=== PATIENT | female | born 1950 | race Caucasian/White ===

== ENCOUNTER → 2016-11-12 | Outpatient (CLI) | payer OTHER ==
--- NOTE | 2016-11-12 13:25 | CT ---
EXAMINATION TYPE: CT brain w con DATE OF EXAM: 11/12/2016 1:08 PM COMPARISON: NONE HISTORY: 66-year-old female passing out, blacking out or possible seizure CT DLP: 1049 mGycm Automated exposure control for dose reduction was used. TECHNIQUE: CT scan of the head is performed with IV Contrast, patient injected with 100 ml mL of Omn ipaque 300. Coronal/sagittal reconstructions performed. FINDINGS: There is a partially calcified and enhancing extra-axial lesion along the superior right frontal conv exity measuring 1 cm. No significant mass effect. No midline shift identified. The ventricles and maldonado lci are within normal limits in size. The globes are intact and the visualized sinuses are clear. IMPRESSION: Partially calcified, enhancing 1 cm extra-axial lesion along the superior right frontal convexity. Fi ndings suggestive of a meningioma. There is no mass effect or other abnormal enhancing lesion seen.
--- NOTE | 2016-11-12 13:35 | CT ---
EXAMINATION TYPE: CT abdomen pelvis w con DATE OF EXAM: 11/12/2016 1:07 PM COMPARISON: NONE HISTORY: 66-year-old female LLQ pain, vomiting, passing out TECHNIQUE: Contiguous axial scanning of the abdomen and pelvis following administration of 100 ml Omn ipaque 300 IV contrast. Delayed images through the kidneys and coronal/sagittal reconstructions perf ormed. CT DLP: 1341 mGycm Automated exposure control for dose reduction was used. FINDINGS: Heart is normal size without pericardial effusion. Lung bases clear without pleural effusion. No focal liver lesion or biliary ductal dilatation. Portal venous system is patent. Gallbladder, adrenal glands, right kidney, spleen, and pancreas appear within normal limits. A couple subcentimeter hypodensities medial upper pole right kidney are too small for accurate CT yobany racterization and probably represent cysts. Moderate atherosclerotic calcifications throughout the abdominal aorta and iliac arteries. There is n arrowing of the patent lumen of the distal abdominal aorta to approximately 4.5 mm. No dilated small bowel, free fluid, or free air. Scattered nonenlarged mesenteric lymph nodes. No abd ominal lymphadenopathy by CT size criteria. While the appendix is not visualized, there are no secondary signs of acute appendicitis. There is some submucosal fat deposition within the right hemicolon. Mild to moderate overall stool bu rden. There is also mild circumferential wall thickening of the proximal sigmoid colon with mid sigmo id diverticulosis. No surrounding pericolonic fat stranding. Bladder is partially urine distended. Uterus surgically absent. No adnexal mass identified. No abnorm al fluid collection in the pelvis or pelvic lymphadenopathy seen. Bones: No osseous destructive process. Degenerative disc disease thoracolumbar junction and L1-L2. IMPRESSION: 1. MILD CIRCUMFERENTIAL WALL THICKENING OF THE PROXIMAL SIGMOID COLON COULD RELATE TO UNDERDISTENTION OR MILD NONSPECIFIC COLITIS. 2. MID SIGMOID DIVERTICULOSIS WITHOUT ANY CONVINCING EVIDENCE FOR ACUTE DIVERTICULITIS. 3. MODERATE PROSTATIC CALCIFICATIONS THROUGHOUT THE ABDOMINAL AORTA AND ILIAC ARTERIES. PLAQUE AND CA LCIFICATION AT THE DISTAL ABDOMINAL AORTA NARROWS THE PATENT LUMEN TO 4.5 MM. 4. SUBMUCOSAL FAT DEPOSITION WITHIN THE RIGHT HEMICOLON CAN BE SEEN AFTER RECURRENT BOUTS OF PRIOR IN FLAMMATION OR COULD RELATE TO OBESITY.
== END | disposition home or self-care (01) ==
LOC: RADCTMAIN 11:00
PROVIDERS: ATTEND Family Medicine
DX: K57.30 Diverticulosis of large intestine without perforation or abscess without bleeding (principal); K63.89 Other specified diseases of intestine; I70.0 Atherosclerosis of aorta; R10.84 Generalized abdominal pain; R90.89 Other abnormal findings on diagnostic imaging of central nervous system
CPT/HCPCS: 70460; 74177; Q9967

== ENCOUNTER → 2016-11-25 | Outpatient (CLI) | payer OTHER ==
[2016-11-25 15:13] LABS: Non-African American GFR(MDRD) >60 (>60 ml/min/1.73 sqM)
== END | disposition home or self-care (01) ==
LOC: LABWHC1 14:35
PROVIDERS: ATTEND Family Medicine
DX: N18.9 Chronic kidney disease, unspecified (principal)
CPT/HCPCS: 36415; 82565

== ENCOUNTER → 2016-11-26 | Outpatient (CLI) | payer OTHER ==
--- NOTE | 2016-11-26 07:43 | MR ---
EXAMINATION TYPE: MR cervical spine wo/w con DATE OF EXAM: 11/26/2016 6:44 AM COMPARISON: 12/29/2011 HISTORY: Neck pain TECHNIQUE: Multiplanar, multisequence images of the cervical spine were acquired utilizing 13 mL intravenous Mul tiHance gadolinium contrast. Diffusion weighted imaging was performed. C2-C3: No evidence for degenerative disc disease. No disc bulge/herniation or protrusion. No Canal stenosis. Foramina are patent bilaterally. C3-C4: Mild disc bulge is present. A slightly greater to the left paracentral region. No AP spinal ca nal stenosis present. Cord contact is not identified. There is mild narrowing of the neural foramen. C4-C5: Central disc bulging has moderate anterior thecal sac compression. Cord contact is evident. Mi ld cord deformity is present. Bilateral foraminal stenosis is present. Canal narrowing is present. C5-C6: Broad-based disc bulge is moderate anterior thecal sac compression. Cord contact is present. C ord compression is present. No signal abnormality within the cord is evident. AP spinal canal diamete r is 0.6 cm. Severe bilateral foraminal narrowing from uncovertebral joint atrophy is present. C6-C7: Mild disc bulges and contact. No AP spinal canal stenosis is present. Moderate left and mild r ight foraminal narrowing is present. C7-T1: No evidence for degenerative disc disease. No disc bulge/herniation or protrusion. No Canal stenosis. Foramina are patent bilaterally. Disc space narrowing is present C4-5 C5-6. Vertebral body heights are preserved. Alignment is normal. Spinal cord maintains normal signal through its visualized course. Some subtle subtle increased sign al posterior to the C5 level on the sagittal T2-weighted images may be truncation artifact not identi fied on the axial images. IMPRESSION: 1. Spinal canal stenosis due to broad-based disc bulging C5-C6. This is stable from 2011. 2. Disc bulging C4-5 with cord contact and mild cord impression. Mild spinal canal stenosis is presen t. This is stable from 2011. 3. Foraminal narrowing especially noted C5-6 bilaterally, C4-5, and to a mild degree bilaterally at C 3-4.
== END | disposition home or self-care (01) ==
LOC: RADMRIMAIN 06:03
PROVIDERS: ATTEND Family Medicine
DX: M48.02 Spinal stenosis, cervical region (principal); M99.71 Connective tissue and disc stenosis of intervertebral foramina of cervical region; M50.221 Other cervical disc displacement at C4-C5 level
CPT/HCPCS: 72156; A9577

== ENCOUNTER → 2017-02-05 | Outpatient (CLI) | payer OTHER ==
[2017-02-05 07:50] LABS: Non-African American GFR(MDRD) >60 (>60 ml/min/1.73 sqM)
--- NOTE | 2017-02-05 09:18 | MR ---
EXAMINATION TYPE: MR brain wo/w con DATE OF EXAM: 02/05/2017 8:58 AM COMPARISON: NONE HISTORY: 66-year-old female with frequent headaches, dizziness, abnormal CT 11-12-16. TECHNIQUE: Multiplanar, multisequence images of the brain and brainstem were acquired before and aft er administration of 13 mL IV MultiHance. Diffusion weighted imaging is performed. FINDINGS: No evidence for acute infarction, hemorrhage, mass effect, midline shift, herniation, effacement of b kyra cisterns, or extra-axial fluid collection. Redemonstrated is the 1 cm enhancing extra-axial mass along the right superior frontal convexity in t he paramedian region. This shows T2 intermediate signal. Post contrast images demonstrate no evidence of other pathologic enhancement. Dural venous sinuses a re patent. The ventricles and sulci are age-appropriate. Major intracranial flow voids are intact. T2/FLAIR weighted sequences show no abnormal white matter signal changes. Incidental partially empty sella. Otherwise, the midline structures demonstrate normal morphology. T he craniocervical junction is normal. Mild mucosal thickening ethmoid air cells and frontal sinuses. Globes are intact. IMPRESSION: 1. As seen on CT, there is a 1 cm enhancing extra-axial mass along the superior right frontal convexi ty. This is most suggestive of a meningioma. A 6 - 12 month follow up exam can be considered. There i s no associated mass effect. 2. Partially empty sella. The exam is otherwise unremarkable.
== END | disposition home or self-care (01) ==
LOC: RADMRIMAIN 07:31
PROVIDERS: ATTEND Family Medicine
DX: G93.89 Other specified disorders of brain (principal); E23.6 Other disorders of pituitary gland
CPT/HCPCS: 82565; 70553; A9577

== ENCOUNTER 2017-09-20 23:56 | Emergency (ER) | payer MEDICARE, OTHER ==
[2017-09-21] MEDS ORDERED: ASPIRIN 81 MG PO STA (00:28)
--- NOTE | 2017-09-21 00:31 | ED ---
Chest Pain HPI - General Chief Complaint: Chest Pain Stated Complaint: Chest Pain Time Seen by Provider: 09/21/17 00:04 Source: patient Mode of arrival: ambulatory Limitations: no limitations - History of Present Illness Initial Comments: This patient is a 67-year-old woman who presents to be a value for substernal chest pain. The patient states that probably an hour ago she was awakened from sleep by pain that she described as sharp and severe. She states that after that it felt like heaviness on her chest. She also noted that she was having some nausea and then threw up and she also had episode of diarrhea. Patient denied anginal symptoms, including no diaphoresis, dyspnea, palpitations, lightheadedness or syncope. The patient states that she called her daughter to discuss the pains and they decided to be evaluated here. She has had this in the past and reportedly seen with no diagnosis. MD Complaint: chest pain Onset/Timin -: hour(s) Onset: during rest, awoke with symptoms Pain Location: substernal Pain Radiation: none Severity: severe Quality: heaviness, sharp Consistency: constant, other Improves With: nothing Worsens With: nothing Anginal Symptoms: nausea, vomiting Treatments Prior to Arrival: none - Related Data Previous Rx's Medication Instructions Recorded Omeprazole 20 mg PO DAILY 10 Days cap 07/22/16 Ondansetron Odt [Zofran ODT] 4 mg PO Q8HR PRN #15 tab 07/22/16 Allergies Allergy/AdvReac Type Severity Reaction Status Date / Time codeine Allergy Unknown Verified 07/22/16 08:36 iron Allergy Unknown Verified 07/22/16 08:36 Penicillins AdvReac Rash/Hives Verified 09/21/17 00:10 Review of Systems ROS Statement: Those systems with pertinent positive or pertinent negative responses have been documented in the HPI. ROS Other: All systems not noted in ROS Statement are negative. Constitutional: Denies: fever, chills Respiratory: Denies: cough, dyspnea, wheezes Cardiovascular: Reports: chest pain. Denies: palpitations, orthopnea, edema, syncope Gastrointestinal: Reports: nausea, vomiting, diarrhea. Denies: abdominal pain, hematemesis, melena, hematochezia Genitourinary: Denies: dysuria, hematuria Musculoskeletal: Denies: back pain Skin: Denies: rash Neurological: Denies: headache, weakness, numbness EKG Findings - EKG Results: EKG: interpreted by VONDA PETTY, sinus rhythm (Rate proximally 68 bpm), normal axis, normal QRS, normal ST/T, no acute changes - AK, Pacemaker, Normal: Normal tracing: normal tracing Past Medical History Past Medical History: No Reported History Additional Past Medical History / Comment(s): Pt states she sometimes has seizure like activity but was never diagnosed. History of Any Multi-Drug Resistant Organisms: None Reported Past Surgical History: Hysterectomy Past Psychological History: No Psychological Hx Reported Smoking Status: Current every day smoker Past Alcohol Use History: None Reported Past Drug Use History: None Reported General Exam Limitations: no limitations General appearance: alert, in no apparent distress Head exam: Present: atraumatic, normocephalic Eye exam: Present: normal appearance ENT exam: Present: normal oropharynx Respiratory exam: Present: normal lung sounds bilaterally. Absent: respiratory distress, wheezes, rales, rhonchi, stridor, chest wall tenderness Cardiovascular Exam: Present: regular rate, normal rhythm, normal heart sounds. Absent: systolic murmur, diastolic murmur, rubs, gallop GI/Abdominal exam: Present: soft. Absent: distended, tenderness, guarding, rebound, mass Extremities exam: Present: normal inspection, normal capillary refill. Absent: pedal edema, calf tenderness Back exam: Present: normal inspection. Absent: CVA tenderness (R), CVA tenderness (L), vertebral tenderness Neurological exam: Present: alert Skin exam: Present: warm, dry, intact, normal color. Absent: rash Course Vital Signs 09/21/17 00:01 Temperature 97.2 F L Pulse Rate 68 Respiratory 18 Rate Blood Pressure 129/59 O2 Sat by Pulse 98 Oximetry - Reevaluation(s) Reevaluation #1: 09/21/17 00:31 Patient declined analgesic Chest Pain MDM - MDM And is a 67-year-old woman presenting for evaluation of chest pain. Her initial workup is negative. I did discuss monitoring her and checking her heart enzymes again, but the patient states that all of her symptoms have resolved and she wants to go home. She is declining admission, but she does agree to return should any of the symptoms recur. She also does agree to have close follow-up with cardiology to have a stress test. Again we discussed return parameters and she will return should any symptoms recur if any new symptoms start. She does understand small risk of missing cardiac disease after leaving with one set of heart enzymes. Disposition Clinical Impression: Chest pain Disposition: HOME SELF-CARE Condition: Good Instructions: Chest Pain (ED) Referrals: Jovon Soler MD [Primary Care Provider] - 1-2 days Amador Crow MD [STAFF PHYSICIAN] - 1-2 days
[2017-09-21 00:39] LABS: Basophils # (A) 0.1 k/uL (0-0.2); Basophils % (A) 1 %; CH 28.2; Eosinophils # (A) 0.2 k/uL (0-0.7); Eosinophils % (A) 2 %; HDW 2.29; HGB 14.2 gm/dL (11.4-16.0); Luc # (Auto) 0.17; Luc % (Auto) 2; Lymphocytes % (A) 46 %; MCH 27.8 pg (25.0-35.0); MCHC 32.4 g/dL (31.0-37.0); MCV 85.7 fL (80.0-100.0); Mean Platelet Volume 7.1; Monocytes # (A) 0.7 k/uL (0-1.0); Monocytes % (A) 8 %; Neutrophils # (A) 3.6 k/uL (1.3-7.7); Neutrophils % (A) 41 %; RBC 5.13 m/uL (3.80-5.40); RDW 13.7 % (11.5-15.5); WBC 8.7 k/uL (3.8-10.6); WBC (Perox) 8.35
--- NOTE | 2017-09-21 00:44 | XR ---
EXAMINATION TYPE: XR chest 1V portable DATE OF EXAM: 09/21/2017 COMPARISON: NONE HISTORY: Chest pain TECHNIQUE: Single frontal view of the chest is obtained. FINDINGS: Heart and mediastinum are normal. Lungs are clear. Diaphragm is normal. Bony thorax is int act. There are chest leads. IMPRESSION: Normal chest
[2017-09-21 00:55] LABS: INR 0.9 (<1.2); Prothrombin Time 9.7 sec (9.0-12.0)
[2017-09-21 00:56] LABS: ALT 28 U/L (9-52); AST 19 U/L (14-36); Alkaline Phosphatase 66 U/L (38-126); Amylase 64 U/L (30-110); Anion Gap 10 mmol/L; Blood Urea Nitrogen 14 mg/dL (7-17); Calcium 9.9 mg/dL (8.4-10.2); Carbon Dioxide 21 mmol/L (22-30); Chloride 109 mmol/L (98-107); Glucose 124 mg/dL (74-99); Non-African American GFR(MDRD) >60 (>60 ml/min/1.73 sqM); Potassium 4.2 mmol/L (3.5-5.1); Sodium 140 mmol/L (137-145); Total Bilirubin 0.5 mg/dL (0.2-1.3); Total Protein 6.9 g/dL (6.3-8.2)
[2017-09-21 01:06] LABS: Creatine Kinase 122 U/L (30-135)
[2017-09-21 01:17] LABS: Creatine Kinase MB 1.2 ng/mL (0.0-2.4); Troponin I <0.012 ng/mL (0.000-0.034)
[2017-09-21 01:52] VITALS: BP 135/70; PULSE 72; RESP 16; TEMP 97.9
== END 2017-09-21 01:52 | disposition home or self-care (01) ==
LOC: EC 23:56
DX: R07.2 Precordial pain (principal); R11.2 Nausea with vomiting, unspecified; R19.7 Diarrhea, unspecified; F17.200 Nicotine dependence, unspecified, uncomplicated; Z88.0 Allergy status to penicillin; Z88.5 Allergy status to narcotic agent; Z91.048 Other nonmedicinal substance allergy status; Z53.20 Procedure and treatment not carried out because of patient's decision for unspecified reasons
CPT/HCPCS: 36415; 71010; 80053; 82150; 82550; 82553; 83690; 83735; 84484; 85025; 85379; 85610; 85730; 99285

== ENCOUNTER 2018-12-30 16:21 | Emergency (ER) | payer MEDICARE, OTHER ==
[2018-12-30] MEDS ORDERED: PANTOPRAZOLE 40 MG/10 ML VIAL IVP STA (17:19)
[2018-12-30] MEDS ORDERED: MORPHINE SULFATE 4 MG/ML SYRINGE IV STA (17:19)
[2018-12-30] MEDS ORDERED: SODIUM CHLORIDE 0.9% 1,000 ML IV STA (17:19)
[2018-12-30] MEDS ORDERED: ONDANSETRON 4 MG/2 ML VIAL IVP STA (17:19)
--- NOTE | 2018-12-30 17:19 | ED ---
General Adult HPI - General Chief complaint: Back Pain/Injury Stated complaint: BACK PAIN AND VOMITING Time Seen by Provider: 12/30/18 16:51 Source: patient, RN notes reviewed Mode of arrival: wheelchair Limitations: no limitations - History of Present Illness Initial comments: Patient is a pleasant 68-year-old female presenting to the emergency department with multiple complaints. Symptoms have been occurring for several days. Patient does have lower back discomfort that radiates towards the left leg. Patient has some associated paresthesias. No abdominal pain. Patient does complain of nausea and vomiting and diarrhea, that started several days ago. This seemed to improve and then nausea returned today. Patient has had one or 2 episodes of diarrhea today. Patient was sweaty this morning and chilled and question if she could've had a fever. No weakness. Patient denies chest pain. - Related Data Previous Rx's Medication Instructions Recorded Omeprazole 20 mg PO DAILY 10 Days cap 07/22/16 Ondansetron Odt [Zofran ODT] 4 mg PO Q8HR PRN #15 tab 07/22/16 Allergies Allergy/AdvReac Type Severity Reaction Status Date / Time codeine Allergy Unknown Verified 12/30/18 16:34 iron Allergy Unknown Verified 12/30/18 16:34 Penicillins AdvReac Rash/Hives Verified 12/30/18 16:34 Review of Systems ROS Statement: Those systems with pertinent positive or pertinent negative responses have been documented in the HPI. ROS Other: All systems not noted in ROS Statement are negative. Constitutional: Reports: chills Eyes: Denies: eye pain ENT: Denies: ear pain Respiratory: Denies: cough Cardiovascular: Denies: chest pain Endocrine: Reports: fatigue Gastrointestinal: Reports: nausea, vomiting, diarrhea. Denies: abdominal pain Genitourinary: Denies: dysuria Musculoskeletal: Reports: as per HPI, back pain Skin: Denies: rash Neurological: Reports: headache. Denies: weakness Past Medical History Past Medical History: No Reported History Additional Past Medical History / Comment(s): Pt states she sometimes has seizure like activity but was never diagnosed. History of Any Multi-Drug Resistant Organisms: None Reported Past Surgical History: Back Surgery, Hysterectomy Past Psychological History: No Psychological Hx Reported Smoking Status: Current every day smoker Past Alcohol Use History: None Reported Past Drug Use History: None Reported General Exam Limitations: no limitations General appearance: alert, in no apparent distress Head exam: Present: atraumatic Eye exam: Present: normal appearance, PERRL ENT exam: Present: normal oropharynx Neck exam: Present: normal inspection Respiratory exam: Present: normal lung sounds bilaterally Cardiovascular Exam: Present: regular rate, normal rhythm Expanded Peripheral pulses: 1+: Posterior Tibialis (R), Posterior Tibialis (L), Dorsalis Pedis (R), Dorsalis Pedis (L), 2+: Radial (R), Radial (L) GI/Abdominal exam: Present: soft, normal bowel sounds. Absent: distended, tenderness, guarding, rebound, rigid, pulsatile mass Extremities exam: Present: normal inspection, full ROM, normal capillary refill , other (cap Refill less than 2 seconds). Absent: tenderness Back exam: Present: tenderness (Mild tenderness mid lumbar and sacral region) Neurological exam: Present: alert, oriented X3, CN II-XII intact. Absent: motor sensory deficit Psychiatric exam: Present: normal affect, normal mood Skin exam: Present: normal color Course Vital Signs 12/30/18 12/30/18 12/30/18 16:34 18:13 19:48 Temperature 97.7 F Pulse Rate 78 61 70 Respiratory 18 16 16 Rate Blood Pressure 164/74 102/64 92/48 O2 Sat by Pulse 98 96 95 Oximetry 12/30/18 20:13 Temperature Pulse Rate 67 Respiratory 16 Rate Blood Pressure 95/65 O2 Sat by Pulse 95 Oximetry - Reevaluation(s) Reevaluation #1: 12/30/18 19:21 Patient reevaluated and states she was starting to feel better however is feeling worse. Abdomen with mild to moderate tenderness left lower abdomen. 12/30/18 20:24 Patient again reevaluated and significantly improved. Of note patient does have positive straight leg raise on the left only. Patient has symptoms consistent with typical back pain. Computed tomography scan is abnormal and patient is updated regarding this. Case was discussed in detail with Dr. Kumar who is agreeable that patient can be discharged and will follow up with patient at 10 AM on Tuesday. Patient updated. Patient does have pedal pulses present however slightly diminished. There is no color change. There is good cap refill. Patient is advised aspirin daily until follow-up. EKG Findings - EKG Comments: EKG Findings:: Normal sinus rhythm at 67. MT 124. QRS 80. QT 400. QTc 422. Left axis. Normal QRS. No acute ST change. Medical Decision Making - Lab Data Result diagrams: 12/30/18 17:39 12/30/18 17:39 Lab Results 12/30/18 12/30/18 12/30/18 Range/Units 17:39 17:39 17:39 WBC 7.5 (3.8-10.6) k/uL RBC 4.78 (3.80-5.40) m/uL Hgb 13.6 (11.4-16.0) gm/dL Hct 40.5 (34.0-46.0) % MCV 84.8 (80.0-100.0) fL MCH 28.5 (25.0-35.0) pg MCHC 33.6 (31.0-37.0) g/dL RDW 12.3 (11.5-15.5) % Plt Count 379 (150-450) k/uL Neutrophils % 43 % Lymphocytes % 44 % Monocytes % 8 % Eosinophils % 3 % Basophils % 0 % Neutrophils # 3.2 (1.3-7.7) k/uL Lymphocytes # 3.3 (1.0-4.8) k/uL Monocytes # 0.6 (0-1.0) k/uL Eosinophils # 0.2 (0-0.7) k/uL Basophils # 0.0 (0-0.2) k/uL PT (9.0-12.0) sec INR (<1.2) APTT (22.0-30.0) sec Sodium 139 (137-145) mmol/L Potassium 4.2 (3.5-5.1) mmol/L Chloride 106 (98-107) mmol/L Carbon Dioxide 26 (22-30) mmol/L Anion Gap 7 mmol/L BUN 12 (7-17) mg/dL Creatinine 0.70 (0.52-1.04) mg/dL Est GFR (CKD-EPI)AfAm >90 (>60 ml/min/1.73 sqM) Est GFR (CKD-EPI)NonAf >90 (>60 ml/min/1.73 sqM) Glucose 106 H (74-99) mg/dL Calcium 9.5 (8.4-10.2) mg/dL Total Bilirubin 0.4 (0.2-1.3) mg/dL AST 15 (14-36) U/L ALT 25 (9-52) U/L Alkaline Phosphatase 62 (38-126) U/L Creatine Kinase 96 (30-135) U/L CK-MB (CK-2) 0.9 (0.0-2.4) ng/mL Troponin I <0.012 (0.000-0.034) ng/mL Total Protein 6.5 (6.3-8.2) g/dL Albumin 3.9 (3.5-5.0) g/dL Amylase 50 (30-110) U/L Lipase 83 (23-300) U/L Urine Color Urine Appearance (Clear) Urine pH (5.0-8.0) Ur Specific [place] (1.001-1.035) Urine Protein (Negative) Urine Glucose (UA) (Negative) Urine Ketones (Negative) Urine Blood (Negative) Urine Nitrite (Negative) Urine Bilirubin (Negative) Urine Urobilinogen (<2.0) mg/dL Ur Leukocyte Esterase (Negative) Urine RBC (0-5) /hpf Urine WBC (0-5) /hpf Ur Squamous Epith Cells (0-4) /hpf Urine Mucus (None) /hpf 12/30/18 12/30/18 Range/Units 17:39 18:54 WBC (3.8-10.6) k/uL RBC (3.80-5.40) m/uL Hgb (11.4-16.0) gm/dL Hct (34.0-46.0) % MCV (80.0-100.0) fL MCH (25.0-35.0) pg MCHC (31.0-37.0) g/dL RDW (11.5-15.5) % Plt Count (150-450) k/uL Neutrophils % % Lymphocytes % % Monocytes % % Eosinophils % % Basophils % % Neutrophils # (1.3-7.7) k/uL Lymphocytes # (1.0-4.8) k/uL Monocytes # (0-1.0) k/uL Eosinophils # (0-0.7) k/uL Basophils # (0-0.2) k/uL PT 9.4 (9.0-12.0) sec INR 0.8 (<1.2) APTT 22.2 (22.0-30.0) sec Sodium (137-145) mmol/L Potassium (3.5-5.1) mmol/L Chloride (98-107) mmol/L Carbon Dioxide (22-30) mmol/L Anion Gap mmol/L BUN (7-17) mg/dL Creatinine (0.52-1.04) mg/dL Est GFR (CKD-EPI)AfAm (>60 ml/min/1.73 sqM) Est GFR (CKD-EPI)NonAf (>60 ml/min/1.73 sqM) Glucose (74-99) mg/dL Calcium (8.4-10.2) mg/dL Total Bilirubin (0.2-1.3) mg/dL AST (14-36) U/L ALT (9-52) U/L Alkaline Phosphatase (38-126) U/L Creatine Kinase (30-135) U/L CK-MB (CK-2) (0.0-2.4) ng/mL Troponin I (0.000-0.034) ng/mL Total Protein (6.3-8.2) g/dL Albumin (3.5-5.0) g/dL Amylase (30-110) U/L Lipase (23-300) U/L Urine Color Yellow Urine Appearance Clear (Clear) Urine pH 6.5 (5.0-8.0) Ur Specific [place] 1.009 (1.001-1.035) Urine Protein Negative (Negative) Urine Glucose (UA) Negative (Negative) Urine Ketones Negative (Negative) Urine Blood Trace H (Negative) Urine Nitrite Negative (Negative) Urine Bilirubin Negative (Negative) Urine Urobilinogen <2.0 (<2.0) mg/dL Ur Leukocyte Esterase Negative (Negative) Urine RBC 2 (0-5) /hpf Urine WBC 2 (0-5) /hpf Ur Squamous Epith Cells 1 (0-4) /hpf Urine Mucus Rare H (None) /hpf - Radiology Data Radiology results: image reviewed (Chest and abdominal x-rays show no acute process. Computed tomography scan of the abdomen and pelvis does show thrombus of the distal aorta into the iliac.) Disposition Clinical Impression: Low back pain, Aortic thrombus Disposition: HOME SELF-CARE Condition: Stable Instructions (If sedation given, give patient instructions): Acute Low Back Pain (ED) Additional Instructions: Aspirin daily. Please follow-up with Dr. Kumar Tuesday morning at 10 AM. Return for increased pain, fevers, weakness, worsening or changing symptoms or other concerns. Is patient prescribed a controlled substance at d/c from ED?: No Referrals: Srinivasa Kumar MD [STAFF PHYSICIAN] - 1-2 days Alda Beatty MD [STAFF PHYSICIAN] - 1-2 days Renetta Almeida MD [STAFF PHYSICIAN] - 1-2 days Time of Disposition: 20:27
--- NOTE | 2018-12-30 18:07 | XR ---
EXAMINATION TYPE: XR KUB DATE OF EXAM: 12/30/2018 COMPARISON: NONE HISTORY: Back pain and vomiting TECHNIQUE: 2 views supine FINDINGS: There is no sign of intestinal obstruction or pneumoperitoneum. Fecal pattern is normal. Th ere are no pathologic calcifications over the kidneys. Lung bases are clear. IMPRESSION: Nonacute abdomen.
--- NOTE | 2018-12-30 18:07 | XR ---
EXAMINATION TYPE: XR chest 2V DATE OF EXAM: 12/30/2018 COMPARISON: 09/21/2017 HISTORY: Chest pain TECHNIQUE: Frontal and lateral views of the chest are obtained. FINDINGS: Heart and mediastinum are normal. Lungs are clear. Diaphragm is normal. There are chest le ads. Bony thorax is intact. IMPRESSION: Normal chest. No change.
[2018-12-30 18:15] VITALS: RESP 16
[2018-12-30 18:19] LABS: Basophils % (A) 0 %; Eosinophils # (A) 0.2 k/uL (0-0.7); Eosinophils % (A) 3 %; HCT 40.5 % (34.0-46.0); HGB 13.6 gm/dL (11.4-16.0); Lymphocytes # (A) 3.3 k/uL (1.0-4.8); Lymphocytes % (A) 44 %; MCH 28.5 pg (25.0-35.0); MCHC 33.6 g/dL (31.0-37.0); MCV 84.8 fL (80.0-100.0); Monocytes # (A) 0.6 k/uL (0-1.0); Monocytes % (A) 8 %; Neutrophils # (A) 3.2 k/uL (1.3-7.7); Neutrophils % (A) 43 %; Platelet Count 379 k/uL (150-450); RBC 4.78 m/uL (3.80-5.40); RDW 12.3 % (11.5-15.5); WBC 7.5 k/uL (3.8-10.6)
[2018-12-30 18:40] LABS: INR 0.8 (<1.2); Partial Thromboplastin Time 22.2 sec (22.0-30.0); Prothrombin Time 9.4 sec (9.0-12.0)
[2018-12-30 18:41] LABS: ALT 25 U/L (9-52); AST 15 U/L (14-36); Albumin 3.9 g/dL (3.5-5.0); Alkaline Phosphatase 62 U/L (38-126); Amylase 50 U/L (30-110); Anion Gap 7 mmol/L; Blood Urea Nitrogen 12 mg/dL (7-17); Calcium 9.5 mg/dL (8.4-10.2); Carbon Dioxide 26 mmol/L (22-30); Chloride 106 mmol/L (98-107); Creatine Kinase 96 U/L (30-135); Glucose 106 mg/dL (74-99); Lipase 83 U/L (23-300); Potassium 4.2 mmol/L (3.5-5.1); Sodium 139 mmol/L (137-145); Total Bilirubin 0.4 mg/dL (0.2-1.3); Total Protein 6.5 g/dL (6.3-8.2)
[2018-12-30 18:51] LABS: Creatine Kinase MB 0.9 ng/mL (0.0-2.4); Troponin I <0.012 ng/mL (0.000-0.034)
[2018-12-30 19:10] LABS: Appearance,Urine Clear (Clear); Bilirubin,Urine Negative (Negative); Blood,Urine Trace (Negative); Color,Urine Yellow; Glucose,Urine (UA) Negative (Negative); Ketones,Urine Negative (Negative); Leukocyte Esterase,Urine Negative (Negative); Mucus,Urine Rare /hpf; Nitrite,Urine Negative (Negative); PH, Urine 6.5 (5.0-8.0); Protein,Urine Negative (Negative); RBC,Urine 2 /hpf (0-5); Specific Gravity,Urine 1.009 (1.001-1.035); Squamous Epithelial Cell,Urine 1 /hpf (0-4); Urobilinogen,Urine <2.0 mg/dL (<2.0); WBC,Urine 2 /hpf (0-5)
[2018-12-30] MEDS ORDERED: HYDROcodone/APAP 5-325MG 1 EACH TAB PO STA (19:17)
[2018-12-30] MEDS ORDERED: HYDROmorphone 1 MG/ML 1 ML SYRINGE IVP STA (19:20)
--- NOTE | 2018-12-30 20:04 | CT ---
EXAMINATION TYPE: CT abdomen pelvis w con DATE OF EXAM: 12/30/2018 COMPARISON: 11/12/2016 HISTORY: BILATERAL LEG NUMBNESS, BACK PAIN, N&V CT DLP: 603.4 mGycm Automated exposure control for dose reduction was used. TECHNIQUE: Helical acquisition of images was performed from the lung bases through the pelvis. CONTRAST: Performed without Oral Contrast and with IV Contrast, patient injected with 100 mL of Isovue 300. FINDINGS: There is mild subsegmental atelectasis at the lung bases. There is no pleural effusion. Heart size is normal. There is no pericardial effusion. Liver and gallbladder appear normal. Bile ducts are not dilated. There is no evidence of a splenic ma ss. There is no pancreatic mass. There is no adrenal mass. Kidneys show satisfactory contrast opacification. There is no hydronephrosi s. Abdominal aorta is atheromatous. There is no retroperitoneal adenopathy. There are small renal cor tical cysts that measure up to 1 cm. There is significant apparent thrombus in the abdominal aorta. There is decreased contrast opacificat ion of the iliac arteries in the lower abdominal aorta. Bladder distends smoothly. There is no eviden ce of a pelvic mass. There is no free fluid in the pelvis. There are multiple diverticula of the sigm oid colon. There is no sign of diverticulitis. Appendix is not definitely seen. There is no sign of a ppendicitis. There is no mesenteric edema. The lumbar spine is intact. I see no bony destructive proc ess. IMPRESSION: THERE IS THROMBOSIS OF THE LOWER ABDOMINAL AORTA AND THE PROXIMAL ILIAC ARTERIES. THIS IS A CHANGE CO MPARED TO LAST EXAM. THERE IS PROBABLY COLLATERAL VESSELS RECONSTITUTING THE FEMORAL ARTERIES. MILD SUBSEGMENTAL ATELECTASIS AT THE LUNG BASES. MILD SIGMOID DIVERTICULOSIS. NO EVIDENCE OF DIVERTIC ULITIS.
[2018-12-30] MEDS ORDERED: ASPIRIN 81 MG PO STA (20:28)
[2018-12-30 20:35] VITALS: BP 91/54; PULSE 61; TEMP 98.8
== END 2018-12-30 20:36 | disposition home or self-care (01) ==
LOC: EC 16:21
DX: I74.09 Other arterial embolism and thrombosis of abdominal aorta (principal); F17.200 Nicotine dependence, unspecified, uncomplicated; Z98.890 Other specified postprocedural states; Z90.710 Acquired absence of both cervix and uterus; Z88.5 Allergy status to narcotic agent; Z88.0 Allergy status to penicillin; Z91.048 Other nonmedicinal substance allergy status
CPT/HCPCS: 36415; 93005; 80053; 82150; 82550; 82553; 83690; 84484; 85025; 85610; 85730; 81001; 71046; 74018; 74177; 99284; 96374; 96375 ×3; 96361 ×2; J2270; J2405; J1170; C9113; Q9967

== ENCOUNTER → 2019-09-24 | Outpatient (CLI) | payer MEDICARE, OTHER ==
--- NOTE | 2019-09-26 09:33 | P.ARTDOP ---
Arterial Doppler LOWER EXTREMITY ARTERIAL DOPPLER: DATE OF SERVICE: 09/24/2019 Reason for study: Bilateral leg pain. Doppler waveforms: Multiphasic bilaterally throughout. Pulse volume recording: []. Pressure gradients: None. Ankle-brachial indices: Greater than 1 bilaterally. Toe pressures: [] on the right, [] on the left Impression: Normal study.
== END | disposition home or self-care (01) ==
LOC: RADUSWWP 14:20
PROVIDERS: ATTEND Internal Medicine
DX: I73.9 Peripheral vascular disease, unspecified (principal); Z95.828 Presence of other vascular implants and grafts; Z88.0 Allergy status to penicillin; Z88.5 Allergy status to narcotic agent; Z88.2 Allergy status to sulfonamides; Z88.8 Allergy status to other drugs, medicaments and biological substances
CPT/HCPCS: 93922

== ENCOUNTER 2021-05-05 02:55 | Inpatient (IN) | payer MEDICARE, OTHER ==
[2021-05-05] MEDS ORDERED: HYDROmorphone 1 MG/ML 1 ML SYRINGE IVP STA (03:08)
[2021-05-05] MEDS ORDERED: SODIUM CHLORIDE 0.9% 1,000 ML IV STA (03:08)
[2021-05-05] MEDS ORDERED: ONDANSETRON 4 MG/2 ML VIAL IVP STA (03:08)
[2021-05-05 03:09] LABS: Glucose,Whole Blood 171 mg/dL (75-99)
--- NOTE | 2021-05-05 03:09 | ED ---
Chest Pain HPI - General Chief Complaint: Chest Pain Stated Complaint: Chest pain Time Seen by Provider: 05/05/21 03:07 Source: patient, EMS, RN notes reviewed, old records reviewed Mode of arrival: EMS Limitations: no limitations - History of Present Illness Initial Comments: This is a 62-year-old female DF for evaluation. Patient comes in with nonspe cific complaints abdominal pain back pain chest pain. Mild nausea no vomiting. Patient states she does not feel well. Patient has history of CABG, high cholesterol, patient very anxious here in the ER MD Complaint: chest pain, other (Abdominal pain nausea vomiting) -: days(s) Onset: during rest Pain Location: substernal, epigastric Severity: moderate Severity scale (1-10): 4 Quality: aching, heaviness Consistency: intermittent Improves With: nothing Worsens With: nothing Anginal Symptoms: nausea, vomiting Other Symptoms: palpitations Treatments Prior to Arrival: none - Related Data Home Medications Medication Instructions Recorded Confirmed Aspirin [Adult Low Dose Aspirin EC] 81 mg PO DAILY 05/05/21 05/05/21 Atorvastatin [Lipitor] 20 mg PO DAILY 05/05/21 05/05/21 Allergies Allergy/AdvReac Type Severity Reaction Status Date / Time codeine Allergy Unknown Verified 05/05/21 08:17 iron Allergy Unknown Verified 05/05/21 08:17 Penicillins AdvReac Rash/Hives Verified 05/05/21 08:17 Review of Systems ROS Statement: Those systems with pertinent positive or pertinent negative responses have been documented in the HPI. ROS Other: All systems not noted in ROS Statement are negative. EKG Findings - EKG Comments: EKG Findings:: EKG is sinus rhythm 64 CO 128 QRS 74 QTc 431 Past Medical History Past Medical History: Hyperlipidemia Additional Past Medical History / Comment(s): Pt states she sometimes has seizure like activity but was never diagnosed. History of Any Multi-Drug Resistant Organisms: None Reported Past Surgical History: Back Surgery, Hysterectomy Past Psychological History: No Psychological Hx Reported Smoking Status: Current every day smoker Past Alcohol Use History: None Reported Past Drug Use History: Marijuana - Past Family History Mother Family Medical History: Diabetes Mellitus General Exam Limitations: no limitations General appearance: alert, in no apparent distress, anxious Head exam: Present: atraumatic, normocephalic, normal inspection Eye exam: Present: normal appearance, PERRL, EOMI. Absent: scleral icterus, conjunctival injection, periorbital swelling ENT exam: Present: normal exam, mucous membranes moist Neck exam: Present: normal inspection. Absent: tenderness, meningismus, lymphadenopathy Respiratory exam: Present: normal lung sounds bilaterally. Absent: respiratory distress, wheezes, rales, rhonchi, stridor Cardiovascular Exam: Present: regular rate, normal rhythm, normal heart sounds. Absent: systolic murmur, diastolic murmur, rubs, gallop, clicks GI/Abdominal exam: Present: soft, normal bowel sounds. Absent: distended, tenderness, guarding, rebound, rigid Extremities exam: Present: normal inspection, full ROM, normal capillary refill. Absent: tenderness, pedal edema, joint swelling, calf tenderness Back exam: Present: normal inspection Neurological exam: Present: alert, oriented X3, CN II-XII intact Psychiatric exam: Present: normal affect, normal mood Skin exam: Present: warm, dry, intact, normal color. Absent: rash Course Vital Signs 05/05/21 05/05/21 05/05/21 02:56 03:08 03:16 Temperature 97.6 F Pulse Rate 66 77 Respiratory 24 24 24 Rate Blood Pressure 110/58 104/72 O2 Sat by Pulse 100 Oximetry 05/05/21 04:47 Temperature Pulse Rate 84 Respiratory 18 Rate Blood Pressure 94/57 O2 Sat by Pulse 98 Oximetry - Reevaluation(s) Reevaluation #1: Medical records reviewed Patient symptoms are improved significantly here in the ER Patient in no acute distress Patient informed of results and questions answered Reevaluation #2: Patient does not feeling better, patient be admitted for surgical evaluation Chest Pain MDM - MDM 62 female with nonspecific atypical chest pain coming in for abdominal pain nausea vomiting. Patient be admitted for surgical evaluation regarding small bowel obstruction, symptom management Disposition Clinical Impression: SBO (small bowel obstruction), Atypical chest pain Disposition: ADMITTED IP TO THIS HOSP Condition: Fair Is patient prescribed a controlled substance at d/c from ED?: No
[2021-05-05 03:22] LABS: Basophils % (A) 0 %; Eosinophils # (A) 0.3 k/uL (0-0.7); Eosinophils % (A) 2 %; HCT 42.1 % (34.0-46.0); Lymphocytes # (A) 2.2 k/uL (1.0-4.8); Lymphocytes % (A) 11 %; MCH 27.9 pg (25.0-35.0); MCHC 33.2 g/dL (31.0-37.0); MCV 84.1 fL (80.0-100.0); Mean Platelet Volume 7.1; Monocytes # (A) 0.5 k/uL (0-1.0); Monocytes % (A) 3 %; Neutrophils # (A) 16.2 k/uL (1.3-7.7); Neutrophils % (A) 84 %; Platelet Count 348 k/uL (150-450); RDW 12.8 % (11.5-15.5); WBC 19.4 k/uL (3.8-10.6)
[2021-05-05 03:41] LABS: ALT 17 U/L (4-34); AST 24 U/L (14-36); African American GFR (CKD) >90 (>60 ml/min/1.73 sqM); Albumin 4.7 g/dL (3.5-5.0); Alkaline Phosphatase 66 U/L (38-126); Anion Gap 11 mmol/L; Blood Urea Nitrogen 14 mg/dL (7-17); Calcium 9.7 mg/dL (8.4-10.2); Carbon Dioxide 23 mmol/L (22-30); Chloride 107 mmol/L (98-107); Creatine Kinase 118 U/L (30-135); Glucose 178 mg/dL (74-99); Lipase 68 U/L (23-300); Magnesium 1.9 mg/dL (1.6-2.3); Non-African American GFR(CKD) 84 (>60 ml/min/1.73 sqM); Potassium 3.9 mmol/L (3.5-5.1); Sodium 141 mmol/L (137-145); Total Bilirubin 0.8 mg/dL (0.2-1.3); Total Protein 7.2 g/dL (6.3-8.2)
--- NOTE | 2021-05-05 03:44 | CT ---
EXAMINATION TYPE: CT angio chest DATE OF EXAM: 05/05/2021 COMPARISON: None HISTORY: chest pain CT DLP: 593.4 mGycm Automated exposure control for dose reduction was used. CONTRAST: Performed with IV Contrast, patient injected with 100ml mL of Isovue 370. Images were obtained from the thoracic inlet to the diaphragm with IV contrast. There are 3-D post pr ocessed images. The lungs are clear of consolidation. There is no evidence of a pulmonary mass. There is no pleural e ffusion. There is no pericardial effusion. There is no mediastinal adenopathy. There are no hilar masses. Thoracic aorta is intact. There is no aneurysm or dissection. There is normal contrast opacification of the pulmonary arteries. There are no filling defects. The thoracic spine is intact. There is no compression fracture. Sternum is intact. There is no evidence of rib fracture. The shoulder joints appear intact. IMPRESSION: Negative exam. No evidence of pulmonary embolism. No acute lung disease.
--- NOTE | 2021-05-05 04:00 | CT ---
EXAMINATION TYPE: CT abdomen pelvis w con DATE OF EXAM: 05/05/2021 COMPARISON: December 30, 2018 HISTORY: chest pain. CT DLP: 593.4 mGycm Automated exposure control for dose reduction was used. CONTRAST: Performed with IV Contrast, patient injected with 100ml mL of Isovue 370. Images obtained from the diaphragm to the floor the pelvis with IV contrast. There is mild subsegmental atelectasis at the lung bases. Heart size is normal. There is no pericardi al effusion. The stomach is intact. Gallbladder is intact. Spleen and pancreas appear normal. The aundrea e ducts are nondilated. Liver appears normal. There is no adrenal mass. Kidneys show satisfactory contrast opacification. There is no hydronephrosi s. There is 1 cm cortical cyst upper pole left kidney. There is no retroperitoneal adenopathy. Delaye d images show normal renal excretion. There is aorto iliac bypass graft. There is significant stenosi s of the lower abdominal aorta. The bladder is almost empty. There are a few sigmoid diverticula. The re is no diverticulitis. There is no free fluid in the pelvis. I see no pelvic mass. There are some mildly dilated air and fluid-filled loops of small bowel in the mid abdomen. The dista l small bowel is not dilated. Dilated small bowel measures up to 3.2 cm. There is possible stricture of the mid jejunum on coronal image 34. The lumbar vertebra have normal alignment. Posterior elements are intact. Disc spaces are normal. Bon y pelvis is intact. The hip joints are intact. IMPRESSION: There are some dilated loops of jejunum in the mid abdomen and possible partial mechanica l small bowel obstruction. Mild colonic diverticulosis without diverticulitis. Atherosclerotic vascular disease. There is patenc y of the aortoiliac femoral bypass grafts.
[2021-05-05 04:28] LABS: Prothrombin Time 10.3 sec (9.0-12.0)
[2021-05-05 04:29] LABS: D-Dimer 1.21 mg/L FEU (<0.60); Partial Thromboplastin Time 17.7 sec (22.0-30.0)
[2021-05-05] MEDS ORDERED: ONDANSETRON 4 MG/2 ML VIAL IVP PRN (04:32)
[2021-05-05] MEDS ORDERED: NALOXONE 0.4 MG/ML 1 ML VIAL IV PRN (04:32)
[2021-05-05] MEDS: PANTOPRAZOLE 40 MG/10 ML VIAL IV SCH (07:22)
--- NOTE | 2021-05-05 11:06 | P.GSCN ---
History of Present Illness Consult date: 05/05/21 History of present illness: CHIEF COMPLAINT: Abdominal pain HISTORY OF PRESENT ILLNESS: This is a 70-year-old female with a known past medical history of bowel obstruction treated conservatively, peripheral vascular disease with aortoiliac femoral bypass, hyperlipidemia, nicotine dependence. She has past surgical history of hysterectomy. Patient presents to the hospital with complaints of epigastric abdominal pain with nausea and vomiting. She reports symptoms started 2 days ago. She was vomiting and having significant abdominal pain. She reports passing out in the bathroom she thinks 3 times. She does report having bowel movements regularly and passing gas. She reports her last bowel movement was yesterday. Patient reports that her pain has shown improvement. Initially Was unable to get the NG tube inserted. Patient was not tolerating NG tube placement for small bowel obstruction. At this time patient is not having any nausea or vomiting. She had a computed tomography scan of abdomen and pelvis with IV contrast showing dilated loops of jejunum in the mid abdomen and possible partial mechanical small bowel obstruction. Mild colonic diverticulosis without diverticulitis. Atherosclerotic vascular disease. There is patency of the aortoiliac femoral bypass grafts. Patient denies any fever, chills or sweats. Denies any cardiac history. PAST MEDICAL HISTORY: See list. PAST SURGICAL HISTORY: See list. MEDICATIONS: See list. ALLERGIES: See list. SOCIAL HISTORY: No illicit drug use. REVIEW OF SYSTEMS: CONSTITUTIONAL: Denies fever or chills. HEENT: Denies blurred vision, vision changes, or eye pain. Denies hemoptysis CARDIOVASCULAR: Denies chest pain or pressure. RESPIRATORY: No shortness of breath. GASTROINTESTINAL: See HPI for pertinent findings HEMATOLOGIC: Denies bleeding disorders. GENITOURINARY: Denies any blood in urine or increased urinary frequency. SKIN: Denies pruitis. Denies rash. PHYSICAL EXAM: VITAL SIGNS: Reviewed GENERAL: Well-developed in no acute distress. HEENT: No sclera icterus. Extraocular movements grossly intact. Moist buccal mucosa. Head is atraumatic, normocephalic. No nasal drainage. ABDOMEN: Soft. Nondistended. Tenderness with palpation of the epigastric area. NEUROLOGIC: Alert and oriented. Cranial nerves II through XII grossly intact. LABORATORY DATA: WBC 19.4 hemoglobin 14 348 INR 1.0 d-dimer 1.21 sodium 141 potassium 3.9 creatinine 0.74 glucose 178 LFTs normal lipase normal Troponin negative BNP 145 IMAGING: CT abdomen and pelvis as stated above CTA of chest negative. No evidence of pulmonary embolism. No acute lung disease. ASSESSMENT: 1. Possible partial mechanical small bowel obstruction 2. Possible stricture of the mid jejunum PLAN: -We'll monitor patient without NG tube -Keep patient nothing by mouth -Continue IV fluids -Continue pain medication as needed -Continue Zofran as needed for nausea and vomiting -Further recommendations forthcoming per surgeon Thank you for this consultation Physician Intern Brand note has been reviewed by physician. Signing provider agrees with the documented findings, assessment, and plan of care. Past Medical History Past Medical History: Hyperlipidemia Additional Past Medical History / Comment(s): Pt states she sometimes has seizure like activity but was never diagnosed. History of Any Multi-Drug Resistant Organisms: None Reported Past Surgical History: Back Surgery, Coronary Bypass/CABG, Hysterectomy Past Psychological History: No Psychological Hx Reported Smoking Status: Current every day smoker Past Alcohol Use History: None Reported Past Drug Use History: Marijuana - Past Family History Mother Family Medical History: Diabetes Mellitus Medications and Allergies Home Medications Medication Instructions Recorded Confirmed Type Aspirin [Adult Low Dose Aspirin EC] 81 mg PO DAILY 05/05/21 05/05/21 History Atorvastatin [Lipitor] 20 mg PO DAILY 05/05/21 05/05/21 History Allergies Allergy/AdvReac Type Severity Reaction Status Date / Time codeine Allergy Unknown Verified 05/05/21 08:17 iron Allergy Unknown Verified 05/05/21 08:17 Penicillins AdvReac Rash/Hives Verified 05/05/21 08:17 Surgical - Exam Vital Signs Temp Pulse Resp BP Pulse Ox 97.6 F 66 24 110/58 100 05/05/21 02:56 05/05/21 02:56 05/05/21 02:56 05/05/21 02:56 05/05/21 02:56 Results - Labs 05/05/21 03:12 05/05/21 03:12 Abnormal Lab Results - Last 24 Hours (Table) 05/05/21 05/05/21 05/05/21 Range/Units 03:07 03:12 03:12 WBC 19.4 H (3.8-10.6) k/uL Neutrophils # 16.2 H (1.3-7.7) k/uL APTT (22.0-30.0) sec D-Dimer (<0.60) mg/L FEU Glucose 178 H (74-99) mg/dL POC Glucose (mg/dL) 171 H (75-99) mg/dL 05/05/21 Range/Units 03:57 WBC (3.8-10.6) k/uL Neutrophils # (1.3-7.7) k/uL APTT 17.7 L (22.0-30.0) sec D-Dimer 1.21 H (<0.60) mg/L FEU Glucose (74-99) mg/dL POC Glucose (mg/dL) (75-99) mg/dL Diabetes panel 05/05/21 Range/Units 03:12 Sodium 141 (137-145) mmol/L Potassium 3.9 (3.5-5.1) mmol/L Chloride 107 (98-107) mmol/L Carbon Dioxide 23 (22-30) mmol/L BUN 14 (7-17) mg/dL Creatinine 0.74 (0.52-1.04) mg/dL Glucose 178 H (74-99) mg/dL Calcium 9.7 (8.4-10.2) mg/dL AST 24 (14-36) U/L ALT 17 (4-34) U/L Alkaline Phosphatase 66 (38-126) U/L Total Protein 7.2 (6.3-8.2) g/dL Albumin 4.7 (3.5-5.0) g/dL Calcium panel 05/05/21 Range/Units 03:12 Calcium 9.7 (8.4-10.2) mg/dL Albumin 4.7 (3.5-5.0) g/dL Pituitary panel 05/05/21 Range/Units 03:12 Sodium 141 (137-145) mmol/L Potassium 3.9 (3.5-5.1) mmol/L Chloride 107 (98-107) mmol/L Carbon Dioxide 23 (22-30) mmol/L BUN 14 (7-17) mg/dL Creatinine 0.74 (0.52-1.04) mg/dL Glucose 178 H (74-99) mg/dL Calcium 9.7 (8.4-10.2) mg/dL Adrenal panel 05/05/21 Range/Units 03:12 Sodium 141 (137-145) mmol/L Potassium 3.9 (3.5-5.1) mmol/L Chloride 107 (98-107) mmol/L Carbon Dioxide 23 (22-30) mmol/L BUN 14 (7-17) mg/dL Creatinine 0.74 (0.52-1.04) mg/dL Glucose 178 H (74-99) mg/dL Calcium 9.7 (8.4-10.2) mg/dL Total Bilirubin 0.8 (0.2-1.3) mg/dL AST 24 (14-36) U/L ALT 17 (4-34) U/L Alkaline Phosphatase 66 (38-126) U/L Total Protein 7.2 (6.3-8.2) g/dL Albumin 4.7 (3.5-5.0) g/dL
[2021-05-05] MEDS: DEXTROSE 5%-0.9% NACL 1,000 ML IV SCH ×2 (12:23→21:35)
--- NOTE | 2021-05-05 22:33 | P.HPIM ---
History of Present Illness H&P Date: 05/05/21 Chief Complaint: Abdominal pain, Nausea and vomiting Ms. Pham is a 70-year-old female with a past medical history of hyperlipidemia, peripheral arterial disease with aortoiliac femoral bypass, hyperlipidemia coming to the hospital with a chief complaint of epigastric abdominal pain, nausea and vomiting. Patient states for the past 2 days she had significant epigastric abdominal pain associated with nausea. Patient states that the pain was squeezing, it was so severe that she felt she would pass out. She also complained of nausea, dry heaves and vomiting. She denies having any blood in her vomitus. Patient denies having any lower abdominal pain, diarrhea or constipation. She states that her last bowel movement was yesterday. Patient denied having any fevers chills or rigors. She denied having any recent travel or sick contacts. She denies having any chest pain or palpitations. No cough or difficulty in breathing. No dysuria or hematuria. In the ER at the time of admission patient's vital signs temperature 97.6, heart rate 66, respiratory rate 24, blood pressure 110/58, saturating 100% on room air on reviewing the labs white count of 19.4, hemoglobin 14, platelets 348, PT 10.3, INR 1, sodium 141, potassium 3.9, chloride 107, bicarb 23, BUN 14, creatinine 0.74 AST 24, ALT 17, alkaline phosphatase 66 troponin less than 0.012 lipase 68. D-dimer is 1.21. The patient also had CT angiogram of the chest that was negative for pulmonary embolism and she had a CAT scan of the abdomen and pelvis showing dilated loops of jejunum in the mid abdomen and possible partial mechanical small bowel obstruction. Mild colonic diverticulosis without diverticulitis and patent aorto iliac femoral bypass grafts. Patient also had EKG showing normal sinus rhythm. Review of Systems REVIEW OF SYSTEMS: CONSTITUTIONAL: No fever, no malaise, no fatigue. HEENT: No headache, no neck stiffness, no blurring of vision CARDIOVASCULAR: No chest pain or palpitations PULMONARY: No cough or difficulty in breathing GASTROINTESTINAL: As per HPI NEUROLOGICAL: No weakness of extremities HEMATOLOGICAL: Denies any bleeding or petechiae. GENITOURINARY: Denies any burning micturition, frequency, or urgency. MUSCULOSKELETAL/RHEUMATOLOGICAL: Denies any joint pain, swelling, or any muscle pain. ENDOCRINE: Denies polyuria polydipsia or heat or cold intolerance The rest of the 14-point review of systems is negative. Past Medical History Past Medical History: Hyperlipidemia Additional Past Medical History / Comment(s): Pt states she sometimes has seizure like activity but was never diagnosed. History of Any Multi-Drug Resistant Organisms: None Reported Past Surgical History: Back Surgery, Coronary Bypass/CABG, Hysterectomy Past Psychological History: No Psychological Hx Reported Smoking Status: Current every day smoker Past Alcohol Use History: None Reported Past Drug Use History: Marijuana - Past Family History Mother Family Medical History: Diabetes Mellitus Medications and Allergies Home Medications Medication Instructions Recorded Confirmed Type Aspirin [Adult Low Dose Aspirin EC] 81 mg PO DAILY 05/05/21 05/05/21 History Atorvastatin [Lipitor] 20 mg PO DAILY 05/05/21 05/05/21 History Allergies Allergy/AdvReac Type Severity Reaction Status Date / Time codeine Allergy Unknown Verified 05/05/21 08:17 iron Allergy Unknown Verified 05/05/21 08:17 Penicillins AdvReac Rash/Hives Verified 05/05/21 08:17 Physical Exam Vitals: Vital Signs Temp Pulse Pulse Resp BP BP Pulse Ox 05/05/21 12:10 98.4 F 59 L 18 116/65 94 L 05/05/21 05:42 69 16 05/05/21 05:20 97.9 F 69 16 93/55 97 05/05/21 04:47 84 18 94/57 98 05/05/21 03:16 77 24 104/72 05/05/21 03:08 24 05/05/21 02:56 97.6 F 66 24 110/58 100 Intake and Output 05/04/21 05/05/21 05/05/21 22:59 06:59 14:59 Other: Voiding Method Toilet Diaper # Voids 0 Weight 63.503 kg PHYSICAL EXAMINATION: GENERAL: Comfortably lying up in the bed appears to be no acute distress. HEENT: Pupils are round and equally reacting to light. EOMI. No scleral icterus. No conjunctival pallor. CARDIOVASCULAR: S1 and S2 present. No murmurs, rubs, or gallops. PULMONARY: Bilateral breath sounds positive. No wheeze or crackles.. ABDOMEN: Mild line abdominal scar . Mild epigastric tenderness, No guarding or rigidity, hypoactive bowel sounds MUSCULOSKELETAL: No joint swelling or deformity. EXTREMITIES: No edema NEUROLOGICAL: Gross neurological examination did not reveal any focal deficits. SKIN:No rash Results CBC & Chem 7: 05/05/21 03:12 05/05/21 03:12 Labs: Abnormal Lab Results - Last 24 Hours (Table) 05/05/21 05/05/21 05/05/21 Range/Units 03:07 03:12 03:12 WBC 19.4 H (3.8-10.6) k/uL Neutrophils # 16.2 H (1.3-7.7) k/uL APTT (22.0-30.0) sec D-Dimer (<0.60) mg/L FEU Glucose 178 H (74-99) mg/dL POC Glucose (mg/dL) 171 H (75-99) mg/dL 05/05/21 Range/Units 03:57 WBC (3.8-10.6) k/uL Neutrophils # (1.3-7.7) k/uL APTT 17.7 L (22.0-30.0) sec D-Dimer 1.21 H (<0.60) mg/L FEU Glucose (74-99) mg/dL POC Glucose (mg/dL) (75-99) mg/dL Thrombosis Risk Factor Assmnt - Choose All That Apply Any of the Below Risk Factors Present?: Yes Each Factor Represents 1 point: Obesity (BMI >25) Other Risk Factors: Yes Each Risk Factor Represents 2 Points: Age 61-74 years Other congenital or acquired thrombophilia - If yes, enter type in comment: No Thrombosis Risk Factor Assessment Total Risk Factor Score: 3 Thrombosis Risk Factor Assessment Level: Moderate Risk Assessment and Plan Assessment: ASSESSMENT Abdominal pain, nausea, vomiting secondary to partial small bowel obstruction Leukocytosis Elevated D-dimer Hyperlipidemia Peripheral arterial disease status post aortoiliac femoral bypass grafts Nicotine dependence PLAN: Keep the patient n.p.o. Symptomatic management of nausea and vomiting with antiemetics IV fluids Failed NG tube placement General surgery on board Further recommendations depending on the progress of the patient
[2021-05-06] MEDS: MORPHINE SULFATE 4 MG/ML SYRINGE IV PRN ×2 (05:01→20:56)
[2021-05-06 05:44] LABS: Basophils % (A) 0 %; Eosinophils # (A) 0.1 k/uL (0-0.7); Eosinophils % (A) 2 %; HCT 36.9 % (34.0-46.0); HGB 12.7 gm/dL (11.4-16.0); Lymphocytes # (A) 3.1 k/uL (1.0-4.8); Lymphocytes % (A) 47 %; MCH 29.1 pg (25.0-35.0); MCHC 34.4 g/dL (31.0-37.0); MCV 84.5 fL (80.0-100.0); Mean Platelet Volume 7.2; Monocytes # (A) 0.5 k/uL (0-1.0); Monocytes % (A) 8 %; Neutrophils # (A) 2.7 k/uL (1.3-7.7); Neutrophils % (A) 42 %; Platelet Count 269 k/uL (150-450); RBC 4.37 m/uL (3.80-5.40); RDW 12.6 % (11.5-15.5); WBC 6.5 k/uL (3.8-10.6)
[2021-05-06 05:59] LABS: ALT 14 U/L (4-34); AST 21 U/L (14-36); African American GFR (CKD) 90 (>60 ml/min/1.73 sqM); Albumin 3.4 g/dL (3.5-5.0); Albumin/Globulin Ratio 1.4; Alkaline Phosphatase 41 U/L (38-126); Anion Gap 4 mmol/L; Blood Urea Nitrogen 10 mg/dL (7-17); Calcium 8.5 mg/dL (8.4-10.2); Carbon Dioxide 25 mmol/L (22-30); Chloride 112 mmol/L (98-107); Globulin 2.4 g/dL; Glucose 124 mg/dL (74-99); Non-African American GFR(CKD) 78 (>60 ml/min/1.73 sqM); Phosphorus 3.2 mg/dL (2.5-4.5); Potassium 3.8 mmol/L (3.5-5.1); Sodium 141 mmol/L (137-145); Total Bilirubin 0.8 mg/dL (0.2-1.3); Total Protein 5.8 g/dL (6.3-8.2)
[2021-05-06] MEDS: PANTOPRAZOLE 40 MG/10 ML VIAL IV SCH (08:24)
[2021-05-06] MEDS: ASPIRIN 81 MG PO SCH (08:56)
[2021-05-06] MEDS: ATORVASTATIN 20 MG TAB PO SCH (08:56)
[2021-05-06 09:26] LABS: Appearance,Urine Clear (Clear); Bilirubin,Urine Negative (Negative); Blood,Urine Trace (Negative); Color,Urine Yellow; Glucose,Urine (UA) Negative (Negative); Ketones,Urine Negative (Negative); Leukocyte Esterase,Urine Negative (Negative); Mucus,Urine Many /hpf; Nitrite,Urine Negative (Negative); PH, Urine 5.5 (5.0-8.0); Protein,Urine Trace (Negative); RBC,Urine 6 /hpf (0-5); Specific Gravity,Urine 1.029 (1.001-1.035); Squamous Epithelial Cell,Urine 2 /hpf (0-4); Urobilinogen,Urine <2.0 mg/dL (<2.0); WBC,Urine 4 /hpf (0-5)
[2021-05-06] MEDS: DEXTROSE 5%-0.9% NACL 1,000 ML IV SCH (11:16)
--- NOTE | 2021-05-06 13:27 | P.PN ---
Subjective Progress Note Date: 05/06/21 CHIEF COMPLAINT: Abdominal pain HISTORY OF PRESENT ILLNESS: Surgical service is following regards to patient's small bowel obstruction. Her abdominal pain has improved. She denies any nausea or vomiting. She is having flatus. Last bowel movement 2 days ago. She is hungry and requesting diet. She is afebrile. WBC 6.5 PHYSICAL EXAM: VITAL SIGNS: Reviewed. GENERAL: Well-developed in no acute distress. HEENT: No sclera icterus. Extraocular movements grossly intact. Moist buccal mucosa. Head is atraumatic, normocephalic. ABDOMEN: Soft. Nondistended. Mild Tenderness with palpation of epigastric area NEUROLOGIC: Alert and oriented. Cranial nerves II through XII grossly intact. ASSESSMENT: 1. Partial mechanical small bowel obstruction showing improvement. 2. 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 Abdominal pain PLAN: -Advance diet to clear liquids -Continue IV fluids -Encouraged patient to increase activity level Physician Writing Tutor note has been reviewed by physician. Signing provider agrees with the documented findings, assessment, and plan of care. Objective - Vital Signs Vital signs: Vital Signs Temp 98.7 F 05/06/21 11:38 Pulse 47 L 05/06/21 11:38 Resp 18 05/06/21 11:38 BP 112/67 05/06/21 11:38 Pulse Ox 97 05/06/21 11:38 Intake & Output 05/05/21 05/06/21 05/06/21 18:59 06:59 18:59 Intake Total 600 900 Balance 600 900 Intake: Intake, IV Titration 600 900 Amount Dextrose 5%-0.9% NaCl 1, 600 900 000 ml @ 75 mls/hr IV . [id number] [facility] Rx#:[id number] Oral 0 Other: Voiding Method Toilet Toilet Diaper Diaper # Voids 2 2 1 - Labs CBC & Chem 7: 05/06/21 05:13 05/06/21 05:13 Labs: Abnormal Lab Results - Last 24 Hours (Table) 05/06/21 05/06/21 Range/Units 05:13 08:45 Chloride 112 H (98-107) mmol/L Glucose 124 H (74-99) mg/dL Total Protein 5.8 L (6.3-8.2) g/dL Albumin 3.4 L (3.5-5.0) g/dL Urine Protein Trace H (Negative) Urine Blood Trace H (Negative) Urine RBC 6 H (0-5) /hpf Urine Mucus Many H (None) /hpf
[2021-05-06] MEDS ORDERED: levETIRAcetam IV 1,000 MG in SALINE 1 100ML.BAG IVPB STA (15:43)
--- NOTE | 2021-05-06 15:59 | P.CNNES ---
History of Present Illness Consult date: 05/06/21 Requesting physician: Izabel Griggs Reason for Consult: new onset seizure History of Present Illness: This is a 70-year-old woman with medical history of hyperlipidemia, peripheral arterial disease with aortoiliac bypass presented emergency department on 05/05/2021 with abdominal pain, nausea vomiting for the last 2 days prior to present to the hospital. Neurology is consulted for her seizure-like episodes at home. Per the patient's she stated that prior to present to the hospital she stated that around 10:30 PM she was lying in her bed and she stated that she had a sensation that she couldn't breathe therefore she went up to the kitchen and then the there she felt hot so she threw water on herself and all of a sudden the she started shaking of all extremities and passed out. She stated that that episode lasted for 2 minutes and she had a bowel incontinence. She had an episode of vomiting and she had a post ictal confusion. After being back to normal she went to the bathroom and the same episode happened there is she was leaving the tub. She has been having these seizure-like episode for last 10-20 years. Sometimes she'll bite her left side of the tongue and longest episode was 6 minutes. In March she had 3 episodes. Prior to the episode she has the sensation that she can't breathe. Most of her episode happened at nighttime. She feels that her seizure-like episodes are triggered by light. Patient did follow up with a neurologist in the past after having imaging showing that she had meningioma over the right frontal and she said the neurologist was over it might clamant spike and could not remember her name but was told that the that she did not have seizures and the an EEG was not done on her. She was notified that the meningioma was the not the cause of the seizures. She was told that she did not need to follow-up with the neurology according to the patient. She has not had any further follow-ups off the the meningioma. Patient on medication is aspirin 81 and Lipitor 20 mg daily. Patient denies any seizure-like episodes as a child. Regarding her history as she states it was normal, term, vaginal and no complication. She has a cousin who has a seizure otherwise none of her siblings or parents have history of seizures. Of note it's upon reviewing the patient's medical record in the past, The patient had a CT of the brain on 11/12/2016 for blacking out/or possible seizure and is reported as partially calcified enhancing 1 cm extra-axial lesion along the superior right frontal convexity. Finding suggests of a meningioma. There is no mass effect or other abnormal enhancing lesion seen. the patient the had MRI of the brain on 02/05/2017 and is reported as as seen on CT, there is 1 cm enhancing extra axial mass along the superior right frontal convexity. This is most suggestive of meningioma. A 6-12 month follow-up exam can be considered. There is no associated mass effect. Partially empty sella. The exams otherwise unremarkable. Some other workup in the hospital consisted of: initial presentation the patient white blood cells 19.4 and the neutrophils was 16.2 but the repeated is 6.5 possibly was reactive her the elevated white blood cell otherwise a CBC with differential is unremarkable. Initial POC glucose is 171 which is slightly elevated. Otherwise the rest of the history panel is unremarkable. Calcium is 9.7, magnesium is 1.9, AST of 24, ALTs 17 which is all all within normal limits. During the hospital and it was felt by general surgery the patient has partial mechanical small bowel obstruction showing improvement urine possible stricture of the mid jejunum. Review of Systems Review of system: The 12 point system was reviewed and apparent positive and negative per HPI. Past Medical History Past Medical History: Hyperlipidemia Additional Past Medical History / Comment(s): Pt states she sometimes has seizu re like activity but was never diagnosed. History of Any Multi-Drug Resistant Organisms: None Reported Past Surgical History: Back Surgery, Coronary Bypass/CABG, Hysterectomy Past Psychological History: No Psychological Hx Reported Smoking Status: Current every day smoker Past Alcohol Use History: None Reported Past Drug Use History: Marijuana - Past Family History Mother Family Medical History: Diabetes Mellitus Medications and Allergies Home Medications Medication Instructions Recorded Confirmed Type Aspirin [Adult Low Dose Aspirin EC] 81 mg PO DAILY 05/05/21 05/05/21 History Atorvastatin [Lipitor] 20 mg PO DAILY 05/05/21 05/05/21 History Allergies Allergy/AdvReac Type Severity Reaction Status Date / Time codeine Allergy Unknown Verified 05/05/21 08:17 iron Allergy Unknown Verified 05/05/21 08:17 Penicillins AdvReac Rash/Hives Verified 05/05/21 08:17 Physical Examination - Vital Signs Vital Signs: Vital Signs Temp Pulse Resp BP Pulse Ox 05/06/21 11:38 98.7 F 47 L 18 112/67 97 05/06/21 08:00 60 18 05/06/21 04:39 98.3 F 77 18 93/61 96 05/05/21 19:45 60 18 05/05/21 19:39 98.8 F 60 18 92/60 97 Intake and Output 05/06/21 05/06/21 05/06/21 06:59 14:59 22:59 Intake Total 900 Balance 900 Intake: Intake, IV Titration 900 Amount Dextrose 5%-0.9% NaCl 1, 900 000 ml @ 75 mls/hr IV . [id number] [facility] Rx#:[id number] Other: Voiding Method Toilet Diaper # Voids 2 1 GENERAL: The patient is lying in bed and is not in acute distress. CHEST: The heart rate is regular rate rhythm. No murmurs to auscultation. No carotid bruit bilaterally. LUNG: Clear to auscultation bilaterally no wheezing noted throughout. Not labored breathing. ABDOMEN/GI: Bowel sounds present in all 4 quadrants. No tenderness to palpation throughout. NEUROLOGICAL: Higher mental function: The patient is awake, alert, oriented to self, place and time. Patient is following commands. No aphasia and no neglect. Cranial nerves: The pupils are round, equal and reactive to light and a ccommodation. Visual blank are full to confrontation throughout. Extraocular movement is intact no nystagmus is noted. Facial sensation is normal to touch throughout. The facial strength is normal throughout. Hearing is normal bilaterally to hand rub. Tongue is midline and moved [id number] without any difficulty. No dysarthria is noted. Shoulder shrug is normal bilaterally. Motor: The strength is 5 over 5 throughout. Normal tone and bulk. Cerebellum: Normal finger to nose heel to gallagher bilaterally. Sensation: Sensation is normal to touch throughout. Reflexes (right/left): 2+ throughout. Plantars are downgoing bilaterally. Results - Laboratory Findings CBC and BMP: 05/06/21 05:13 05/06/21 05:13 Abnormal Lab Findings: Abnormal Labs 05/05/21 05/05/21 05/05/21 03:07 03:12 03:12 WBC 19.4 H Neutrophils # 16.2 H APTT D-Dimer Chloride Glucose 178 H POC Glucose (mg/dL) 171 H Total Protein Albumin Urine Protein Urine Blood Urine RBC Urine Mucus 05/05/21 05/06/21 05/06/21 03:57 05:13 08:45 WBC Neutrophils # APTT 17.7 L D-Dimer 1.21 H Chloride 112 H Glucose 124 H POC Glucose (mg/dL) Total Protein 5.8 L Albumin 3.4 L Urine Protein Trace H Urine Blood Trace H Urine RBC 6 H Urine Mucus Many H Assessment and Plan Assessment: This is a 70-year-old the woman that presented to the hospital because of abdominal pain. Neurology is seeing her for seizure-like episode. The patient states that for the last 10-20 years a she is a having a sensation where she can breathe then would have the jerking of all extremities then would pass out then would have bowel incontinence and a tongue bite and post ictal confusion. Mostly these episodes happen at night and they're triggered by light. * Newly diagnosed epilepsy (has been having them for the past 10-20 years). I feel likely the right frontal meningioma is causing brain irritation and leading to seizure (that was seen on 2017 imaging). 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 * Hyperlipidemia * Peripheral artery disease with aortoiliac bypass Plan: * I ordered MRI of the brain with and without to assess if there is any new lesion and the extension of the the patient's meningioma since last MRI in our facility. * Started the patient on Keppra 500 mg 1 tablet twice a day and loaded the patient on Keppra 1gm once * I ordered a routine EEG. * Placed on seizure precaution and pads. * We'll defer the rest of the medical management to the surgery and the primary team. * Upon discharge the patient needs to follow-up with a neurologist and neurosurgeon as outpatient within 1-2 weeks. * We'll attempt for the patient that to get 2 1/2 hours EEG as an outpatient and follow-up with Dr. Moses Sandra for her seizure episodes. * The patient was notified that the per the [facility] she cannot drive for 6 month until the seizure/loss of consciousness episodes resolve. She is to avoid heights, using heavy machinery or swimming unassisted. Thank you for the consultation. Damian Tellez M.D. Neuro-hospitalist Time with Patient: Greater than 30
--- NOTE | 2021-05-06 16:13 | P.PN ---
Subjective Progress Note Date: 05/06/21 Chief Complaint: Abdominal pain, Nausea and vomiting Ms. Pham is a 70-year-old female with a past medical history of hyperlipidemia, peripheral arterial disease with aortoiliac femoral bypass, hyperlipidemia coming to the hospital with a chief complaint of epigastric abdominal pain, nausea and vomiting. Patient states for the past 2 days she had significant epigastric abdominal pain associated with nausea. Patient states that the pain was squeezing, it was so severe that she felt she would pass out. She also complained of nausea, dry heaves and vomiting. She denies having any blood in her vomitus. Patient denies having any lower abdominal pain, diarrhea or constipation. She states that her last bowel movement was yesterday. Patient denied having any fevers chills or rigors. She denied having any recent travel or sick contacts. She denies having any chest pain or palpitations. No cough or difficulty in breathing. No dysuria or hematuria. In the ER at the time of admission patient's vital signs temperature 97.6, heart rate 66, respiratory rate 24, blood pressure 110/58, saturating 100% on room air on reviewing the labs white count of 19.4, hemoglobin 14, platelets 348, PT 10.3, INR 1, sodium 141, potassium 3.9, chloride 107, bicarb 23, BUN 14, creatinine 0.74 AST 24, ALT 17, alkaline phosphatase 66 troponin less than 0.012 lipase 68. D-dimer is 1.21. The patient also had CT angiogram of the chest that was negative for pulmonary embolism and she had a CAT scan of the abdomen and pelvis showing dilated loops of jejunum in the mid abdomen and possible partial mechanical small bowel obstruction. Mild colonic diverticulosis without diverticulitis and patent aorto iliac femoral bypass grafts. Patient also had EKG showing normal sinus rhythm. 05/06/2021 She is seen in follow-up with no acute overnight issues. Patient is being followed by surgery for possible small bowel obstruction and appears to be improving. Patient is passing gas but no reports of bowel movements as of yet. Patient is maintained on IV hydration and have repeated labs and pending at this time. Patient continues to state that she has been having seizures or seizure- like activity and has been told multiple times she is not having seizures and will consult neuro and appreciate the recommendations. Patient is being started on clear liquids and will monitor for tolerance. Review of systems: Constitutional: No reports of fatigue, fever, or chills Cardiovascular: No reports of chest pain or palpitations Respiratory: No reports of shortness of breath or cough GI: No reports of nausea, vomiting, or diarrhea : No reports of dysuria or retention Neurovascular: No reports of weakness or numbness All medications have been reviewed Active Medications Aspirin (Aspirin 81 Mg) 81 mg PO DAILY [facility] Last Admin: 05/06/21 08:56 Dose: 81 mg Documented by: Atorvastatin Calcium (Atorvastatin 20 Mg Tab) 20 mg PO DAILY [facility] Last Admin: 05/06/21 08:56 Dose: 20 mg Documented by: Dextrose/Sodium Chloride (Dextrose 5%-Ns Iv Soln) 1,000 mls @ 75 mls/hr IV .[id number] [facility] Last Admin: 05/06/21 11:16 Dose: 75 mls/hr Documented by: Levetiracetam (Levetiracetam 500 Mg Tab) 500 mg PO Q12HR [facility] Morphine Sulfate (Morphine Sulfate 4 Mg/Ml Syringe) 4 mg IV Q4HR PRN PRN Reason: Severe Pain Last Admin: 05/06/21 05:01 Dose: 4 mg Documented by: Naloxone HCl (Naloxone 0.4 Mg/Ml 1 Ml Vial) 0.2 mg IV Q2M PRN PRN Reason: Opioid Reversal Ondansetron HCl (Ondansetron 4 Mg/2 Ml Vial) 4 mg IVP Q8HR PRN PRN Reason: Nausea And Vomiting Pantoprazole Sodium (Pantoprazole 40 Mg/10 Ml Vial) 40 mg IV DAILY [facility] Last Admin: 05/06/21 08:24 Dose: 40 mg Documented by: Objective - Vital Signs Vital signs: Vital Signs Temp 98.3 F 05/06/21 04:39 Pulse 77 05/06/21 04:39 Resp 18 05/06/21 04:39 BP 93/61 05/06/21 04:39 Pulse Ox 96 05/06/21 04:39 Intake & Output 05/05/21 05/06/21 05/06/21 18:59 06:59 18:59 Intake Total 600 900 Balance 600 900 Intake: Intake, IV Titration 600 900 Amount Dextrose 5%-0.9% NaCl 1, 600 900 000 ml @ 75 mls/hr IV . [id number] [facility] Rx#:[id number] Oral 0 Other: Voiding Method Toilet Toilet Diaper Diaper # Voids 2 2 1 - Exam GENERAL: Comfortably lying in the bed appears to be no acute distress. HEENT: Pupils are round and equally reacting to light. EOMI. No scleral icterus. No conjunctival pallor. CARDIOVASCULAR: S1 and S2 present. No murmurs, rubs, or gallops. PULMONARY: Bilateral breath sounds positive. No wheeze or crackles.. ABDOMEN: Mild line abdominal scar . Nontender on palpation, No guarding or rigidity, positive bowel sounds noted on exam MUSCULOSKELETAL: No joint swelling or deformity. EXTREMITIES: No edema NEUROLOGICAL: Gross neurological examination did not reveal any focal deficits. SKIN:No rash - Labs CBC & Chem 7: 05/06/21 05:13 05/06/21 05:13 Labs: Abnormal Lab Results - Last 24 Hours (Table) 05/06/21 05/06/21 Range/Units 05:13 08:45 Chloride 112 H (98-107) mmol/L Glucose 124 H (74-99) mg/dL Total Protein 5.8 L (6.3-8.2) g/dL Albumin 3.4 L (3.5-5.0) g/dL Urine Protein Trace H (Negative) Urine Blood Trace H (Negative) Urine RBC 6 H (0-5) /hpf Urine Mucus Many H (None) /hpf Assessment and Plan Assessment: Abdominal pain, nausea, vomiting secondary to partial small bowel obstruction Possible seizures possibly secondary to meningioma as noted on previous scans Leukocytosis, improved Elevated D-dimer Hyperlipidemia Peripheral arterial disease status post aortoiliac femoral bypass grafts Nicotine dependence PLAN: Patient is being followed by surgery and was nothing by mouth although is passing gas and abdominal pain and is improved and will start on clear liquids on it or for tolerance. Continue with anti-emetics as needed and will continue IV fluids for now and possibly discontinue tomorrow if tolerating clear liquids. Neurology consulted and patient is being started on Keppra and will undergo MRI of the brain along with EEG for possible seizure-like activity that was noted prior to admission and stated by patient. Further recommendations to follow based on the clinical course of the patient. Prognosis is guarded.
[2021-05-06] MEDS: levETIRAcetam 500 MG TAB PO SCH (20:45)
[2021-05-07] MEDS: DEXTROSE 5%-0.9% NACL 1,000 ML IV SCH ×2 (03:29→17:03)
[2021-05-07] MEDS: PANTOPRAZOLE 40 MG/10 ML VIAL IV SCH (07:50)
[2021-05-07] MEDS: levETIRAcetam 500 MG TAB PO SCH ×2 (07:50→20:12)
[2021-05-07] MEDS: ASPIRIN 81 MG PO SCH (07:50)
[2021-05-07] MEDS: ATORVASTATIN 20 MG TAB PO SCH (07:50)
[2021-05-07] MEDS: MORPHINE SULFATE 4 MG/ML SYRINGE IV PRN (07:54)
[2021-05-07] MEDS: NICOTINE 21MG/24HR PATCH TRANSDERM SCH (09:51)
--- NOTE | 2021-05-07 13:57 | EEG ---
ELECTROENCEPHALOGRAM REPORT DATE OF SERVICE: 05/07/2021. CLINICAL HISTORY: This is a 70-year-old woman with recurrent episodes of jerking of all extremities and unresponsiveness. This video EEG is obtained to evaluate for seizure or epileptiform activity. FOLLOWUP MEDICATION: Keppra. EEG TYPE: A routine 21-channel EEG is performed with video using the 10/20 electrode placement system. DESCRIPTION: Wakefulness and brief drowsiness are obtained. During wakefulness, there is a posterior dominant rhythm of low to moderate voltage, well modulated, of 9 hertz activity. During drowsiness, there is slowing and attenuation of the background activity. There is no physiological stage 2 sleep architecture. There is no focal slowing. Interictal and ictal is none. ACTIVATION PROCEDURE: Photic stimulation did not evoke a posterior driving response. There is no abnormality during the photic stimulation. Hyperventilation is not performed. CLINICAL INTERPRETATION: This is a normal routine EEG. There are no focal slowing, epileptiform discharges or seizures on the EEG. Clinical correlation is recommended. JUANITO / NETEU: [id number] / MALLORY
--- NOTE | 2021-05-07 14:36 | P.PN ---
Subjective Progress Note Date: 05/07/21 CHIEF COMPLAINT: Abdominal pain HISTORY OF PRESENT ILLNESS: Surgical service is following regards to patient's small bowel obstruction. Her abdominal pain has improved. She denies any nausea or vomiting. She is having flatus. Vision seen by neurology regarding new onset of seizures and has been started on Keppra and have ordered EEG and MRI of the brain. She is afebrile. Patient seen and examined with Dr. Hercules PHYSICAL EXAM: VITAL SIGNS: Reviewed. GENERAL: Well-developed in no acute distress. HEENT: No sclera icterus. Extraocular movements grossly intact. Moist buccal mucosa. Head is atraumatic, normocephalic. ABDOMEN: Soft. Nondistended. NEUROLOGIC: Alert and oriented. Cranial nerves II through XII grossly intact. ASSESSMENT: 1. Partial mechanical small bowel obstruction showing improvement. 2. 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 Abdominal pain PLAN: -Advance diet to regular -Continue conservative management -Encouraged patient to increase activity level -Continue neurological workup Physician Flat Sorting Machine Clerk note has been reviewed by physician. Signing provider agrees with the documented findings, assessment, and plan of care. Objective - Vital Signs Vital signs: Vital Signs Temp 98 F 05/07/21 12:01 Pulse 51 L 05/07/21 12:01 Resp 16 05/07/21 12:01 BP 88/57 05/07/21 12:01 Pulse Ox 98 05/07/21 12:01 Intake & Output 05/06/21 05/07/21 05/07/21 18:59 06:59 18:59 Other: Voiding Method Toilet Toilet Toilet Diaper Diaper Diaper # Voids 1 1 - Labs CBC & Chem 7: 05/06/21 05:13 05/06/21 05:13
--- NOTE | 2021-05-07 14:50 | P.PN ---
Subjective Progress Note Date: 05/07/21 Chief Complaint: Abdominal pain, Nausea and vomiting Ms. Pham is a 70-year-old female with a past medical history of hyperlipidemia, peripheral arterial disease with aortoiliac femoral bypass, hyperlipidemia coming to the hospital with a chief complaint of epigastric abdominal pain, nausea and vomiting. Patient states for the past 2 days she had significant epigastric abdominal pain associated with nausea. Patient states that the pain was squeezing, it was so severe that she felt she would pass out. She also complained of nausea, dry heaves and vomiting. She denies having any blood in her vomitus. Patient denies having any lower abdominal pain, diarrhea or constipation. She states that her last bowel movement was yesterday. Patient denied having any fevers chills or rigors. She denied having any recent travel or sick contacts. She denies having any chest pain or palpitations. No cough or difficulty in breathing. No dysuria or hematuria. In the ER at the time of admission patient's vital signs temperature 97.6, heart rate 66, respiratory rate 24, blood pressure 110/58, saturating 100% on room air on reviewing the labs white count of 19.4, hemoglobin 14, platelets 348, PT 10.3, INR 1, sodium 141, potassium 3.9, chloride 107, bicarb 23, BUN 14, creatinine 0.74 AST 24, ALT 17, alkaline phosphatase 66 troponin less than 0.012 lipase 68. D-dimer is 1.21. The patient also had CT angiogram of the chest that was negative for pulmonary embolism and she had a CAT scan of the abdomen and pelvis showing dilated loops of jejunum in the mid abdomen and possible partial mechanical small bowel obstruction. Mild colonic diverticulosis without diverticulitis and patent aorto iliac femoral bypass grafts. Patient also had EKG showing normal sinus rhythm. 05/06/2021 She is seen in follow-up with no acute overnight issues. Patient is being followed by surgery for possible small bowel obstruction and appears to be improving. Patient is passing gas but no reports of bowel movements as of yet. Patient is maintained on IV hydration and have repeated labs and pending at this time. Patient continues to state that she has been having seizures or seizure- like activity and has been told multiple times she is not having seizures and will consult neuro and appreciate the recommendations. Patient is being started on clear liquids and will monitor for tolerance. 05/07/2021 Patient is seen and evaluated in follow-up this morning with no acute overnight issues noted. Patient is on seizure precautions with no seizure-like activity noted. Patient underwent long EEG which was negative for any epileptiform or seizure-like activity noted. Patient continues to await for an MRI of the brain to be done which is pending at this time. Neurology and surgery following. Patient tolerating clear and full liquids and being advanced to regular diet. Patient denies any bowel movements but is passing gas and tolerating diet with no reports of nausea or vomiting noted. Patient is on Keppra and tolerating stating she is having no side effects currently. Patient was maintained on IV fluids as she was nothing by mouth and clear liquids previously and will discontinue. Will repeat a.m. labs. Instructed the patient increase activity as tolerated and patient states she has been up and walking with no difficulties. Review of systems: Constitutional: No reports of fatigue, fever, or chills Cardiovascular: No reports of chest pain or palpitations Respiratory: No reports of shortness of breath or cough GI: No reports of nausea, vomiting, or diarrhea : No reports of dysuria or retention Neurovascular: No reports of weakness or numbness All medications have been reviewed Active Medications Aspirin (Aspirin 81 Mg) 81 mg PO DAILY [facility] Last Admin: 05/07/21 07:50 Dose: 81 mg Documented by: Atorvastatin Calcium (Atorvastatin 20 Mg Tab) 20 mg PO DAILY [facility] Last Admin: 05/07/21 07:50 Dose: 20 mg Documented by: Levetiracetam (Levetiracetam 500 Mg Tab) 500 mg PO Q12HR [facility] Last Admin: 05/07/21 07:50 Dose: 500 mg Documented by: Morphine Sulfate (Morphine Sulfate 4 Mg/Ml Syringe) 4 mg IV Q4HR PRN PRN Reason: Severe Pain Last Admin: 05/07/21 07:54 Dose: 4 mg Documented by: Naloxone HCl (Naloxone 0.4 Mg/Ml 1 Ml Vial) 0.2 mg IV Q2M PRN PRN Reason: Opioid Reversal Nicotine (Nicotine 21mg/24hr Patch) 1 patch TRANSDERM DAILY [facility] Last Admin: 05/07/21 09:51 Dose: 1 patch Documented by: Ondansetron HCl (Ondansetron 4 Mg/2 Ml Vial) 4 mg IVP Q8HR PRN PRN Reason: Nausea And Vomiting Pantoprazole Sodium (Pantoprazole 40 Mg/10 Ml Vial) 40 mg IV DAILY [facility] Last Admin: 05/07/21 07:50 Dose: 40 mg Documented by: Objective - Vital Signs Vital signs: Vital Signs Temp 97.9 F 05/07/21 04:41 Pulse 56 L 05/07/21 04:41 Resp 16 05/07/21 04:41 BP 95/52 05/07/21 04:41 Pulse Ox 97 05/07/21 04:41 Intake & Output 05/06/21 05/07/21 05/07/21 18:59 06:59 18:59 Other: Voiding Method Toilet Toilet Diaper Diaper # Voids 1 1 - Exam GENERAL: Comfortably sitting up in the bed appears to be no acute distress. HEENT: Pupils are round and equally reacting to light. EOMI. No scleral icterus. No conjunctival pallor. CARDIOVASCULAR: S1 and S2 present. No murmurs, rubs, or gallops. PULMONARY: Bilateral breath sounds positive. No wheeze or crackles.. ABDOMEN: Mild line abdominal scar . Nontender on palpation, No guarding or rigidity, positive bowel sounds noted on exam MUSCULOSKELETAL: No joint swelling or deformity. EXTREMITIES: No edema NEUROLOGICAL: Gross neurological examination did not reveal any focal deficits. No seizure-like activity noted SKIN:No rash - Labs CBC & Chem 7: 05/06/21 05:13 05/06/21 05:13 Labs: Abnormal Lab Results - Last 24 Hours (Table) 05/06/21 Range/Units 08:45 Urine Protein Trace H (Negative) Urine Blood Trace H (Negative) Urine RBC 6 H (0-5) /hpf Urine Mucus Many H (None) /hpf Assessment and Plan Assessment: Abdominal pain, nausea, vomiting secondary to partial small bowel obstruction, improving Possible seizures possibly secondary to meningioma as noted on previous scans Leukocytosis, improved Elevated D-dimer Hyperlipidemia Peripheral arterial disease status post aortoiliac femoral bypass grafts Nicotine dependence Full code PLAN: Patient is being followed by surgery and diet is being advanced to regular diet. Patient is tolerating with no reports of nausea or vomiting noted. Patient reports the passing gas but has not had a bowel movement yet. Patient has been up and walking and increasing activity as tolerated. Continue with anti-emetics as needed. Patient underwent EEG which was normal showing no epileptiform or seizure like activity. Patient awaiting MRI of the brain which is pending at this time. Neurology is following. Further recommendations to follow based on the clinical course of the patient. Will repeat a.m. labs and continue to monitor vital signs closely. Prognosis is guarded. Possible discharge in 24-48 hours.
--- NOTE | 2021-05-07 18:41 | P.PN ---
Subjective Progress Note Date: 05/07/21 Patient was seen at bedside and no further seizure activity. He denies of any new neurological deficits. Objective - Vital Signs Vital signs: Vital Signs Temp 98 F 05/07/21 12:01 Pulse 51 L 05/07/21 12:01 Resp 16 05/07/21 12:01 BP 88/57 05/07/21 12:01 Pulse Ox 98 05/07/21 12:01 Intake & Output 05/06/21 05/07/21 05/07/21 18:59 06:59 18:59 Intake Total 240 Balance 240 Intake: Oral 240 Other: Voiding Method Toilet Toilet Toilet Diaper Diaper Diaper # Voids 1 1 2 - Exam GENERAL: The patient is lying in bed and is not in acute distress. NEUROLOGICAL: Higher mental function: The patient is awake, alert, oriented to self, place and time. Patient is following commands. No aphasia and no neglect. Cranial nerves: The pupils are round, equal and reactive to light and accommodation. Visual blank are full to confrontation throughout. Extraocular movement is intact no nystagmus is noted. Facial sensation is normal to touch throughout. The facial strength is normal throughout. Hearing is normal bilaterally to hand rub. Tongue is midline and moved [id number] without any difficulty. No dysarthria is noted. Shoulder shrug is normal bilaterally. Motor: The strength is 5 over 5 throughout. Normal tone and bulk. Cerebellum: Normal finger to nose heel to gallagher bilaterally. Sensation: Sensation is normal to touch throughout. Reflexes (right/left): 2+ throughout. Plantars are downgoing bilaterally. - Labs CBC & Chem 7: 05/06/21 05:13 05/06/21 05:13 Assessment and Plan Assessment: This is a 70-year-old the woman that presented to the hospital because of abdominal pain. Neurology is seeing her for seizure-like episode. The patient states that for the last 10-20 years a she is a having a sensation where she can breathe then would have the jerking of all extremities then would pass out then would have bowel incontinence and a tongue bite and post ictal confusion. Mostly these episodes happen at night and they're triggered by light. * Her episodes of jerking of all extremities, loss of consciousness and tongue bite seem likley due to newly diagnosed epilepsy (has been having them for the past 10-20 years). I feel likely the right frontal meningioma is causing brain irritation and leading to seizure (that was seen on 2017 imaging). 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 * Hyperlipidemia * Peripheral artery disease with aortoiliac bypass Plan: * Pending MRI of the brain with and without to assess if there is any new lesion and the extension of the the patient's meningioma since last MRI in our facility. * Continue Keppra 500 mg 1 tablet twice a day. * Routine EEG today: Normal. There are no focal slowing, epileptiform activity or seizure. * Placed on seizure precaution and pads. * We'll defer the rest of the medical management to the surgery and the primary team. * Upon discharge the patient needs to follow-up with a neurologist and neurosurgeon as outpatient within 1-2 weeks. * We'll attempt for the patient that to get 2 1/2 hours EEG as an outpatient and follow-up with Dr. Moses Sandra for her seizure episodes. Possibly consider getting overnight outpatient prolonged EEG since has her episodes at night to capture them. * The patient was notified that the per the [place] [employer] she cannot drive for 6 month until the seizure/loss of consciousness episodes resolve. She is to elizabet id heights, using heavy machinery or swimming unassisted. The plan is discussed with the patient's nurse. Damian Tellez M.D. Neuro-hospitalist Time with Patient: Less than 30
[2021-05-08] MEDS: MORPHINE SULFATE 4 MG/ML SYRINGE IV PRN (07:26)
[2021-05-08] MEDS: NICOTINE 21MG/24HR PATCH TRANSDERM SCH (07:26)
[2021-05-08] MEDS: PANTOPRAZOLE 40 MG/10 ML VIAL IV SCH (07:26)
[2021-05-08] MEDS: levETIRAcetam 500 MG TAB PO SCH (07:26)
[2021-05-08] MEDS: ATORVASTATIN 20 MG TAB PO SCH (07:26)
[2021-05-08] MEDS: ASPIRIN 81 MG PO SCH (07:26)
--- NOTE | 2021-05-08 12:03 | MR ---
EXAMINATION TYPE: MR brain wo/w con DATE OF EXAM: 05/08/2021 COMPARISON: Prior brain MRI 02/05/2017 HISTORY: Hx right frontal meningioma. TECHNIQUE: Multiplanar, multisequence images of the brain and brainstem is performed without and with IV contras t, utilizing 6.5 mL intravenous Gadavist . FINDINGS: Diffusion weighted images demonstrate no evidence of a recent infarct or other diffusion ab normality. There is no extra-axial fluid collection or significant change in white matter signal abn ormality. The ventricular system and cisternal spaces are normal in size and appearance. The brain volume is age appropriate. Midline structures demonstrate stable morphology. The craniocervical junction appears within normal limits. Post contrast images demonstrate enhancement of the right frontal lesion measuring 13 mm, si milar to prior exam, approximately 12 mm on prior. The dural venous sinuses appear patent. The visual ized sinuses are markable for inflammatory change within the left maxillary sinus, frontal sinus and ethmoid air cells, minimal inflammatory change in the mastoids on the right, and the globes are intac t. IMPRESSION: Similar appearance of right frontal meningioma.
--- NOTE | 2021-05-08 12:21 | P.PN ---
Subjective Patient was seen at bedside and no further seizure activity. He denies of any new neurological deficits. Objective - Vital Signs Vital signs: Vital Signs Temp 98.5 F 05/08/21 04:52 Pulse 92 05/08/21 04:52 Resp 16 05/08/21 04:52 BP 115/72 05/08/21 04:52 Pulse Ox 95 05/08/21 04:52 Intake & Output 05/07/21 05/08/21 05/08/21 18:59 06:59 18:59 Intake Total 240 540 Output Total 3 Balance 240 537 Intake: Oral 240 540 Output: Urine 3 Other: Voiding Method Toilet Toilet Toilet Diaper Diaper Diaper # Voids 2 - Exam GENERAL: The patient is lying in bed and is not in acute distress. NEUROLOGICAL: Higher mental function: The patient is awake, alert, oriented to self, place and time. Patient is following commands. No aphasia and no neglect. Cranial nerves: The pupils are round, equal and reactive to light and accommodation. Visual blank are full to confrontation throughout. Extraocular movement is intact no nystagmus is noted. Facial sensation is normal to touch throughout. The facial strength is normal throughout. Hearing is normal bila terally to hand rub. Tongue is midline and moved [id number] without any difficulty. No dysarthria is noted. Shoulder shrug is normal bilaterally. Motor: The strength is 5 over 5 throughout. Normal tone and bulk. Cerebellum: Normal finger to nose heel to gallagher bilaterally. Sensation: Sensation is normal to touch throughout. Reflexes (right/left): 2+ throughout. Plantars are downgoing bilaterally. IMAGING/OTHER TESTS: * MR the brain is reported as "similar appearance of right frontal meningioma. In the body of the report is mentioned the patient has postcontrast images demonstrate enhancement of the right frontal lesion measuring 13 mm, similar to the prior exam approximately 12 mm on prior". I personally could not reviewed the images because of problem with the system. * EEG on 05/07/2021 is normal. There are no focal slowing, epileptiform discharges or seizure on EEG. Clinical correlations recommended. - Labs CBC & Chem 7: 05/06/21 05:13 05/06/21 05:13 Assessment and Plan Assessment: This is a 70-year-old the woman that presented to the hospital because of abdominal pain. Neurology is seeing her for seizure-like episode. The patient states that for the last 10-20 years a she is a having a sensation where she can breathe then would have the jerking of all extremities then would pass out then would have bowel incontinence and a tongue bite and post ictal confusion. Mos tly these episodes happen at night and they're triggered by light. * Her episodes of jerking of all extremities, loss of consciousness and tongue bite seem likley due to newly diagnosed epilepsy (has been having them for the past 10-20 years). I feel likely the right frontal meningioma is causing b rain irritation and leading to seizure (that was seen on 2017 imaging). 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 * Hyperlipidemia * Peripheral artery disease with aortoiliac bypass Plan: * Continue Keppra 500 mg 1 tablet twice a day. * On seizure precaution and pads. * We'll defer the rest of the medical management to the surgery and the primary team. * Upon discharge the patient needs to follow-up with a neurologist and neurosurgeon as outpatient within 1-2 weeks. * We'll attempt for the patient that to get 2 1/2 hours EEG as an outpatient and follow-up with Dr. Moses Sandra for her seizure episodes. Possibly consider getting overnight outpatient prolonged EEG since has her episodes at night to capture them. * The patient was notified that the per the [facility] she cannot drive for 6 month until the seizure/loss of consciousness episodes resolve. She is to avoid heights, using heavy machinery or swimming unassisted. The plan is discussed with the patient's nurse. There is no further neurological work-up. Neurology will sign off. Please reconsult if needed. Damian Tellez M.D. Neuro-hospitalist Time with Patient: Less than 30
[2021-05-08 13:02] VITALS: BP 120/83; PULSE 79; RESP 19; TEMP 98
--- NOTE | 2021-05-08 13:33 | P.PN ---
Subjective Progress Note Date: 05/08/21 CHIEF COMPLAINT: Abdominal pain HISTORY OF PRESENT ILLNESS: Surgical service is following regards to patient's small bowel obstruction. Patient's abdominal pain has resolved. She denies any nausea or vomiting. She is had having flatus. Her abdominal pain has improved. She denies any nausea or vomiting. She is having flatus. She is tolerating a regular diet. Patient followed by neurology regarding seizures. Afebrile. Patient seen and examined with Dr. Hercules PHYSICAL EXAM: VITAL SIGNS: Reviewed. GENERAL: Well-developed in no acute distress. HEENT: No sclera icterus. Extraocular movements grossly intact. Moist buccal mucosa. Head is atraumatic, normocephalic. ABDOMEN: Soft. Nondistended. NEUROLOGIC: Alert and oriented. Cranial nerves II through XII grossly intact. ASSESSMENT: 1. Partial mechanical small bowel obstruction resolved 2. 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 Abdominal pain PLAN: -Patient is stable from surgical standpoint for discharge Physician [employer] note has been reviewed by physician. Signing provider agrees with the documented findings, assessment, and plan of care. Objective - Vital Signs Vital signs: Vital Signs Temp 98.0 F 05/08/21 12:32 Pulse 79 05/08/21 12:32 Resp 19 05/08/21 12:32 BP 120/83 05/08/21 12:32 Pulse Ox 94 L 05/08/21 12:32 Intake & Output 05/07/21 05/08/21 05/08/21 18:59 06:59 18:59 Intake Total 240 540 Output Total 3 Balance 240 537 Intake: Oral 240 540 Output: Urine 3 Other: Voiding Method Toilet Toilet Toilet Diaper Diaper Diaper # Voids 2 - Labs CBC & Chem 7: 05/06/21 05:13 05/06/21 05:13
--- NOTE | 2021-05-08 16:06 | P.DS ---
Providers Date of admission: 05/05/21 04:32 Expected date of discharge: 05/08/21 Attending physician: Chapincito Meredith Consults: 05/05/21 08:18 Consult Physician Routine Consulting Provider: Jay Hercules Consult Reason/Comments: small bowel obstruction Do you want consulting provider notified?: Yes 05/06/21 12:15 Consult Physician Urgent Consulting Provider: Damian Tellez Consult Reason/Comments: new onset seizure Do you want consulting provider notified?: Yes Primary care physician: Celeste Senior Hospital Course: Final diagnosis Abdominal pain, nausea, vomiting secondary to partial small bowel obstruction, improving Possible seizures possibly secondary to meningioma as noted on previous scans and MRI of the brain today measuring approximately 13 mm of the right frontal area Leukocytosis, improved Elevated D-dimer Hyperlipidemia Peripheral arterial disease status post aortoiliac femoral bypass grafts Nicotine dependence Full code Discharge disposition Patient is being discharged in a stable condition with guarded prognosis to home. Patient will follow-up with Dr. Alonso in the outpatient setting upon discharge. Patient is to also follow-up with neurology in one week. Patient also instructed to follow-up with neurosurgery in the outpatient setting. Patient was started on Keppra 500 mg twice daily and will continue. Total time taken is greater than 35 minutes. Hospital course Chief Complaint: Abdominal pain, Nausea and vomiting Ms. Pham is a 70-year-old female with a past medical history of hyperlipidemia, peripheral arterial disease with aortoiliac femoral bypass, hyperlipidemia coming to the hospital with a chief complaint of epigastric abdominal pain, nausea and vomiting. Patient states for the past 2 days she had significant epigastric abdominal pain associated with nausea. Patient states that the pain was squeezing, it was so severe that she felt she would pass out. She also complained of nausea, dry heaves and vomiting. She denies having any blood in her vomitus. Patient denies having any lower abdominal pain, diarrhea or constipation. She states that her last bowel movement was yesterday. Patient denied having any fevers chills or rigors. She denied having any recent travel or sick contacts. She denies having any chest pain or palpitations. No cough or difficulty in breathing. No dysuria or hematuria. In the ER at the time of admission patient's vital signs temperature 97.6, heart rate 66, respiratory rate 24, blood pressure 110/58, saturating 100% on room air on reviewing the labs white count of 19.4, hemoglobin 14, platelets 348, PT 10.3, INR 1, sodium 141, potassium 3.9, chloride 107, bicarb 23, BUN 14, creatinine 0.74 AST 24, ALT 17, alkaline phosphatase 66 troponin less than 0.012 lipase 68. D-dimer is 1.21. The patient also had CT angiogram of the chest that was negative for pulmonary embolism and she had a CAT scan of the abdomen and pelvis showing dilated loops of jejunum in the mid abdomen and possible partial mechanical small bowel obstruction. Mild colonic diverticulosis without diverticulitis and patent aorto iliac femoral bypass grafts. Patient also had EKG showing normal sinus rhythm. 05/06/2021 She is seen in follow-up with no acute overnight issues. Patient is being followed by surgery for possible small bowel obstruction and appears to be improving. Patient is passing gas but no reports of bowel movements as of yet. Patient is maintained on IV hydration and have repeated labs and pending at this time. Patient continues to state that she has been having seizures or seizure- like activity and has been told multiple times she is not having seizures and will consult neuro and appreciate the recommendations. Patient is being started on clear liquids and will monitor for tolerance. 05/07/2021 Patient is seen and evaluated in follow-up this morning with no acute overnight issues noted. Patient is on seizure precautions with no seizure-like activity noted. Patient underwent long EEG which was negative for any epileptiform or seizure-like activity noted. Patient continues to await for an MRI of the brain to be done which is pending at this time. Neurology and surgery following. Patient tolerating clear and full liquids and being advanced to regular diet. Patient denies any bowel movements but is passing gas and tolerating diet with no reports of nausea or vomiting noted. Patient is on Keppra and tolerating stating she is having no side effects currently. Patient was maintained on IV fluids as she was nothing by mouth and clear liquids previously and will discontinue. Will repeat a.m. labs. Instructed the patient increase activity as tolerated and patient states she has been up and walking with no difficulties. 05/08/2021 Patient is seen in follow-up this morning and is having some mild dull abdominal discomfort and continues to not have a bowel movement. Patient is passing gas and tolerating diet with no reports of nausea or vomiting noted. Underwent MRI of the brain which showed continued right frontal meningioma measuring 13 mm similar to prior exam which was approximately 12 mm. EEG was negative and patient will have outpatient EEG done and needs to follow-up with neurosurgery along with neurology in the outpatient setting in 1-2 weeks. Patient was started on Keppra 500 mg twice daily and will continue. Prescription provided. Patient also encouraged to continue with current diet and increase diet as tolerated. Patient instructed to follow-up with primary care provider this week. Currently no reports of chest pain, shortness of breath, or palpitations. Patient is afebrile. No reports of nausea or vomiting and patient is tolerating diet. Patient will be discharged home today. According to [place]'s law patient should not drive or use heavy equipment or machinery and avoid heights until medically cleared from neurology in 6 months of seizure or loss of consciousness episodes resolved. On exam vital signs are stable. Cardio S1, S2 are muffled. Respiratory system shows diminished breath sounds at the bases with no wheezing or rhonchi noted. Abdomen is soft and nontender. Nervous system shows no focal deficits. Please refer to medication reconciliation sheet for a list of medications. Patient Condition at Discharge: Stable Plan - Discharge Summary Discharge Rx Participant: No New Discharge Prescriptions: New Famotidine [Pepcid] 20 mg PO DAILY 30 Days #30 tablet Ondansetron Odt [Zofran Odt] 4 mg PO Q8HR PRN #20 tab PRN Reason: Nausea traMADol HCL [Ultram] 50 mg PO Q6HR PRN 3 Days #12 tab PRN Reason: Pain Nicotine 21Mg/24Hr Patch [Habitrol] 1 patch TRANSDERM DAILY #20 patch levETIRAcetam [Keppra] 500 mg PO Q12HR 30 Days #60 tab Continue Atorvastatin [Lipitor] 20 mg PO DAILY Aspirin [Adult Low Dose Aspirin EC] 81 mg PO DAILY Discharge Medication List Aspirin [Adult Low Dose Aspirin EC] 81 mg PO DAILY 05/05/21 [History] Atorvastatin [Lipitor] 20 mg PO DAILY 05/05/21 [History] Famotidine [Pepcid] 20 mg PO DAILY 30 Days #30 tablet 05/08/21 [Rx] Nicotine 21Mg/24Hr Patch [Habitrol] 1 patch TRANSDERM DAILY #20 patch 05/08/21 [Rx] Ondansetron Odt [Zofran Odt] 4 mg PO Q8HR PRN #20 tab 05/08/21 [Rx] levETIRAcetam [Keppra] 500 mg PO Q12HR 30 Days #60 tab 05/08/21 [Rx] traMADol HCL [Ultram] 50 mg PO Q6HR PRN 3 Days #12 tab 05/08/21 [Rx] Follow up Appointment(s)/Referral(s): Nadeen Alonso MD [Primary Care Provider] - 05/14/21 10:40 am Patient Instructions/Handouts: Epilepsy (DC), Meningioma (DC), Electroencephalogram (DC) Activity/Diet/Wound Care/Special Instructions: Activity Limited until follow-up Follow-up with primary care provider upon discharge Follow-up with neurology outpatient in one week Continue Keppra twice daily and follow up with neurology Continue current diet and slowly advance as tolerated Discharge Disposition: HOME SELF-CARE
== END 2021-05-08 14:10 | disposition home or self-care (01) | DRG 390 ==
LOC: EC 02:55 → 5NMEDONC 04:32
PROVIDERS: ADMIT Hospitalist; ATTEND Hospitalist
DX: K56.690 Other partial intestinal obstruction (principal); E78.5 Hyperlipidemia, unspecified; I73.9 Peripheral vascular disease, unspecified; F17.200 Nicotine dependence, unspecified, uncomplicated; D32.0 Benign neoplasm of cerebral meninges; Z79.899 Other long term (current) drug therapy; G40.909 Epilepsy, unspecified, not intractable, without status epilepticus; K57.30 Diverticulosis of large intestine without perforation or abscess without bleeding; E78.00 Pure hypercholesterolemia, unspecified; Z83.3 Family history of diabetes mellitus; Z79.82 Long term (current) use of aspirin; Z95.1 Presence of aortocoronary bypass graft; Z90.710 Acquired absence of both cervix and uterus; Z88.5 Allergy status to narcotic agent; Z88.0 Allergy status to penicillin; Z88.8 Allergy status to other drugs, medicaments and biological substances
CPT/HCPCS: 36415; 70553; 71275; 74177; 80053; 81001; 82550; 83690; 83735; 83880; 84100; 84484; 85025; 85379; 85610; 85730; 93005; 94760; 95816; 96361; 96374; 96375; 99285

== ENCOUNTER → 2021-05-15 | Outpatient (CLI) | payer MEDICARE, OTHER | LOC: NEUROMAIN 06:38 | PROVIDERS: ATTEND Student in an Organized Health Care Education/Training Program | DX: R56.9 Unspecified convulsions (principal); F17.200 Nicotine dependence, unspecified, uncomplicated; Z88.5 Allergy status to narcotic agent; Z88.0 Allergy status to penicillin; Z88.8 Allergy status to other drugs, medicaments and biological substances | CPT/HCPCS: 95713 ==

== ENCOUNTER 2021-05-25 22:18 | Inpatient (IN) | payer MEDICARE, OTHER ==
[2021-05-25] MEDS ORDERED: SODIUM CHLORIDE 0.9% 1,000 ML IV STA (23:10)
[2021-05-25] MEDS ORDERED: ONDANSETRON 4 MG/2 ML VIAL IVP STA (23:10)
[2021-05-25] MEDS ORDERED: KETOROLAC 15 MG/ML 1 ML VIAL IVP STA (23:10)
[2021-05-25] MEDS ORDERED: MORPHINE SULFATE 4 MG/ML SYRINGE IV STA (23:10)
--- NOTE | 2021-05-25 23:12 | ED ---
Recheck HPI - General Chief Complaint: Recheck/Abnormal Lab/Rx Stated Complaint: Revisit Time Seen by Provider: 05/25/21 22:55 Source: patient, RN notes reviewed, old records reviewed Mode of arrival: wheelchair Limitations: no limitations - History of Present Illness Initial Comments: This is a 70-year-old female to the ER for evaluation. Patient presents today for evaluation persistent nausea vomiting abdominal pain. MD Complaint: abnormal lab (Persistent abdominal pain with nausea vomiting) -: hour(s) Returns Today for: persistent/worsening pain related to initial visit Symptoms Since Prior Visit: worsening pain Context: planned re-check Associated Symptoms: none Treatments Prior to Arrival: Given Pain Meds on - Related Data Home Medications Medication Instructions Recorded Confirmed Aspirin [Adult Low Dose Aspirin EC] 81 mg PO DAILY 05/05/21 05/05/21 Atorvastatin [Lipitor] 20 mg PO DAILY 05/05/21 05/05/21 Previous Rx's Medication Instructions Recorded Famotidine [Pepcid] 20 mg PO DAILY 30 Days #30 tablet 05/08/21 Nicotine 21Mg/24Hr Patch [Habitrol] 1 patch TRANSDERM DAILY #20 patch 05/08/21 Ondansetron Odt [Zofran Odt] 4 mg PO Q8HR PRN #20 tab 05/08/21 levETIRAcetam [Keppra] 500 mg PO Q12HR 30 Days #60 tab 05/08/21 traMADol HCL [Ultram] 50 mg PO Q6HR PRN 3 Days #12 tab 05/08/21 Allergies Allergy/AdvReac Type Severity Reaction Status Date / Time codeine Allergy Unknown Verified 05/25/21 22:27 iron Allergy Unknown Verified 05/25/21 22:27 Penicillins AdvReac Rash/Hives Verified 05/25/21 22:27 Review of Systems ROS Statement: Those systems with pertinent positive or pertinent negative responses have been documented in the HPI. ROS Other: All systems not noted in ROS Statement are negative. Past Medical History Past Medical History: Hyperlipidemia, Seizure Disorder Additional Past Medical History / Comment(s): Pt states she sometimes has seizure like activity but was never diagnosed. History of Any Multi-Drug Resistant Organisms: None Reported Past Surgical History: Back Surgery, Hysterectomy Past Psychological History: No Psychological Hx Reported Smoking Status: Current every day smoker Past Alcohol Use History: None Reported Past Drug Use History: Marijuana - Past Family History Mother Family Medical History: Diabetes Mellitus General Exam Limitations: no limitations General appearance: alert, in no apparent distress Head exam: Present: atraumatic, normocephalic, normal inspection Eye exam: Present: normal appearance, PERRL, EOMI. Absent: scleral icterus, conjunctival injection, periorbital swelling ENT exam: Present: normal exam, mucous membranes moist Neck exam: Present: normal inspection. Absent: tenderness, meningismus, lymphadenopathy Respiratory exam: Present: normal lung sounds bilaterally. Absent: respiratory distress, wheezes, rales, rhonchi, stridor Cardiovascular Exam: Present: regular rate, normal rhythm, normal heart sounds. Absent: systolic murmur, diastolic murmur, rubs, gallop, clicks GI/Abdominal exam: Present: soft, normal bowel sounds. Absent: distended, tenderness, guarding, rebound, rigid Extremities exam: Present: normal inspection, full ROM, normal capillary refill. Absent: tenderness, pedal edema, joint swelling, calf tenderness Back exam: Present: normal inspection Neurological exam: Present: alert, oriented X3, CN II-XII intact Psychiatric exam: Present: normal affect, normal mood Skin exam: Present: warm, dry, intact, normal color. Absent: rash Course Vital Signs 05/25/21 22:21 Temperature 98.0 F Pulse Rate 67 Respiratory 20 Rate Blood Pressure 183/72 O2 Sat by Pulse 100 Oximetry - Reevaluation(s) Reevaluation #1: 05/26/21 01:08 Medical record is reviewed Reevaluation #2: 05/26/21 01:08 Patient symptoms are significantly improved Reevaluation #3: 05/26/21 01:09 Patient informed of results and questions are answered Medical Decision Making - Medical Decision Making 70 female to the ER for evaluation of persistent nausea vomiting abdominal pain, weakness not feeling well. Patient be admitted for further symptomatic treatment and therapy - Lab Data Result diagrams: 05/25/21 23:20 05/25/21 23:20 Lab Results 05/25/21 05/25/21 05/25/21 Range/Units 23:20 23:20 23:20 WBC 7.5 (3.8-10.6) k/uL RBC 5.17 (3.80-5.40) m/uL Hgb 14.7 (11.4-16.0) gm/dL Hct 44.1 (34.0-46.0) % MCV 85.2 (80.0-100.0) fL MCH 28.4 (25.0-35.0) pg MCHC 33.4 (31.0-37.0) g/dL RDW 12.3 (11.5-15.5) % Plt Count 340 (150-450) k/uL MPV 7.5 Neutrophils % 51 % Lymphocytes % 36 % Monocytes % 7 % Eosinophils % 2 % Basophils % 0 % Neutrophils # 3.8 (1.3-7.7) k/uL Lymphocytes # 2.7 (1.0-4.8) k/uL Monocytes # 0.5 (0-1.0) k/uL Eosinophils # 0.2 (0-0.7) k/uL Basophils # 0.0 (0-0.2) k/uL PT (9.0-12.0) sec INR (<1.2) APTT (22.0-30.0) sec Sodium 141 (137-145) mmol/L Potassium 4.0 (3.5-5.1) mmol/L Chloride 109 H (98-107) mmol/L Carbon Dioxide 23 (22-30) mmol/L Anion Gap 9 mmol/L BUN 12 (7-17) mg/dL Creatinine 0.74 (0.52-1.04) mg/dL Est GFR (CKD-EPI)AfAm >90 (>60 ml/min/1.73 sqM) Est GFR (CKD-EPI)NonAf 84 (>60 ml/min/1.73 sqM) Glucose 112 H (74-99) mg/dL Plasma Lactic Acid Odell (0.7-2.0) mmol/L Calcium 9.6 (8.4-10.2) mg/dL Total Bilirubin 0.8 (0.2-1.3) mg/dL AST 24 (14-36) U/L ALT 17 (4-34) U/L Alkaline Phosphatase 70 (38-126) U/L Creatine Kinase 73 (30-135) U/L Troponin I (0.000-0.034) ng/mL Total Protein 7.1 (6.3-8.2) g/dL Albumin 4.6 (3.5-5.0) g/dL Amylase 67 (30-110) U/L Lipase 98 (23-300) U/L Urine Color Light Yellow Urine Appearance Clear (Clear) Urine pH 6.0 (5.0-8.0) Ur Specific Butler 1.006 (1.001-1.035) Urine Protein Negative (Negative) Urine Glucose (UA) Negative (Negative) Urine Ketones Negative (Negative) Urine Blood Trace H (Negative) Urine Nitrite Negative (Negative) Urine Bilirubin Negative (Negative) Urine Urobilinogen <2.0 (<2.0) mg/dL Ur Leukocyte Esterase Trace H (Negative) Urine RBC 2 (0-5) /hpf Urine WBC 4 (0-5) /hpf Ur Squamous Epith Cells 1 (0-4) /hpf Urine Bacteria Few H (None) /hpf 05/25/21 05/25/21 05/25/21 Range/Units 23:20 23:20 23:20 WBC (3.8-10.6) k/uL RBC (3.80-5.40) m/uL Hgb (11.4-16.0) gm/dL Hct (34.0-46.0) % MCV (80.0-100.0) fL MCH (25.0-35.0) pg MCHC (31.0-37.0) g/dL RDW (11.5-15.5) % Plt Count (150-450) k/uL MPV Neutrophils % % Lymphocytes % % Monocytes % % Eosinophils % % Basophils % % Neutrophils # (1.3-7.7) k/uL Lymphocytes # (1.0-4.8) k/uL Monocytes # (0-1.0) k/uL Eosinophils # (0-0.7) k/uL Basophils # (0-0.2) k/uL PT 10.0 (9.0-12.0) sec INR 0.9 (<1.2) APTT 22.4 (22.0-30.0) sec Sodium (137-145) mmol/L Potassium (3.5-5.1) mmol/L Chloride (98-107) mmol/L Carbon Dioxide (22-30) mmol/L Anion Gap mmol/L BUN (7-17) mg/dL Creatinine (0.52-1.04) mg/dL Est GFR (CKD-EPI)AfAm (>60 ml/min/1.73 sqM) Est GFR (CKD-EPI)NonAf (>60 ml/min/1.73 sqM) Glucose (74-99) mg/dL Plasma Lactic Acid Odell 0.8 (0.7-2.0) mmol/L Calcium (8.4-10.2) mg/dL Total Bilirubin (0.2-1.3) mg/dL AST (14-36) U/L ALT (4-34) U/L Alkaline Phosphatase (38-126) U/L Creatine Kinase (30-135) U/L Troponin I <0.012 (0.000-0.034) ng/mL Total Protein (6.3-8.2) g/dL Albumin (3.5-5.0) g/dL Amylase (30-110) U/L Lipase (23-300) U/L Urine Color Urine Appearance (Clear) Urine pH (5.0-8.0) Ur Specific Butler (1.001-1.035) Urine Protein (Negative) Urine Glucose (UA) (Negative) Urine Ketones (Negative) Urine Blood (Negative) Urine Nitrite (Negative) Urine Bilirubin (Negative) Urine Urobilinogen (<2.0) mg/dL Ur Leukocyte Esterase (Negative) Urine RBC (0-5) /hpf Urine WBC (0-5) /hpf Ur Squamous Epith Cells (0-4) /hpf Urine Bacteria (None) /hpf - Radiology Data Radiology results: report reviewed (CT abdomen and pelvis is negative for acute disease), image reviewed Disposition Clinical Impression: SBO (small bowel obstruction), Nausea and vomiting Disposition: ADMITTED IP TO THIS [facility] Condition: Good Is patient prescribed a controlled substance at d/c from ED?: No Referrals: Nadeen Alonso MD [Primary Care Provider] - 1-2 days
[2021-05-25 23:38] LABS: Basophils % (A) 0 %; Eosinophils # (A) 0.2 k/uL (0-0.7); Eosinophils % (A) 2 %; HCT 44.1 % (34.0-46.0); HGB 14.7 gm/dL (11.4-16.0); Lymphocytes # (A) 2.7 k/uL (1.0-4.8); Lymphocytes % (A) 36 %; MCH 28.4 pg (25.0-35.0); MCHC 33.4 g/dL (31.0-37.0); MCV 85.2 fL (80.0-100.0); Mean Platelet Volume 7.5; Monocytes # (A) 0.5 k/uL (0-1.0); Monocytes % (A) 7 %; Neutrophils # (A) 3.8 k/uL (1.3-7.7); Neutrophils % (A) 51 %; Platelet Count 340 k/uL (150-450); RBC 5.17 m/uL (3.80-5.40); RDW 12.3 % (11.5-15.5); WBC 7.5 k/uL (3.8-10.6)
[2021-05-25 23:53] LABS: ALT 17 U/L (4-34); AST 24 U/L (14-36); African American GFR (CKD) >90 (>60 ml/min/1.73 sqM); Albumin 4.6 g/dL (3.5-5.0); Alkaline Phosphatase 70 U/L (38-126); Amylase 67 U/L (30-110); Anion Gap 9 mmol/L; Blood Urea Nitrogen 12 mg/dL (7-17); Calcium 9.6 mg/dL (8.4-10.2); Carbon Dioxide 23 mmol/L (22-30); Chloride 109 mmol/L (98-107); Creatine Kinase 73 U/L (30-135); Glucose 112 mg/dL (74-99); INR 0.9 (<1.2); Lipase 98 U/L (23-300); Non-African American GFR(CKD) 84 (>60 ml/min/1.73 sqM); Partial Thromboplastin Time 22.4 sec (22.0-30.0); Sodium 141 mmol/L (137-145); Total Bilirubin 0.8 mg/dL (0.2-1.3); Total Protein 7.1 g/dL (6.3-8.2)
[2021-05-26 01:02] LABS: Appearance,Urine Clear (Clear); Bacteria,Urine Few /hpf; Bilirubin,Urine Negative (Negative); Blood,Urine Trace (Negative); Color,Urine Light Yellow; Glucose,Urine (UA) Negative (Negative); Ketones,Urine Negative (Negative); Leukocyte Esterase,Urine Trace (Negative); Nitrite,Urine Negative (Negative); Protein,Urine Negative (Negative); RBC,Urine 2 /hpf (0-5); Specific Gravity,Urine 1.006 (1.001-1.035); Squamous Epithelial Cell,Urine 1 /hpf (0-4); Urobilinogen,Urine <2.0 mg/dL (<2.0); WBC,Urine 4 /hpf (0-5)
[2021-05-26] MEDS ORDERED: ONDANSETRON 4 MG/2 ML VIAL IVP PRN (01:05)
[2021-05-26] MEDS ORDERED: NALOXONE 0.4 MG/ML 1 ML VIAL IV PRN (01:05)
--- NOTE | 2021-05-26 01:30 | CT ---
EXAMINATION TYPE: CT abdomen pelvis w con DATE OF EXAM: 05/26/2021 COMPARISON: 05/05/2021 HISTORY: LLQ Abd Pain CT DLP: 694.60 mGycm Automated exposure control for dose reduction was used. CONTRAST: Performed with IV Contrast, patient injected with 100 mL of Isovue 300. Images obtained from the diaphragm to the floor the pelvis with IV contrast. Lung bases are clear of consolidation. There is minimal subsegmental atelectasis. Heart size is cisco l. There is no pericardial effusion. There is no pleural effusion. Stomach is intact. Liver spleen pa ncreas gallbladder appear intact. The bile ducts are not dilated. There is no adrenal mass. Kidneys show satisfactory contrast opacification. There is no hydronephrosi s. The ureters are not dilated. There is no retroperitoneal adenopathy. Bladder distends smoothly. Th ere is no inguinal hernia. There are multiple sigmoid diverticula. I see no diverticulitis. There is no evidence of a pelvic mass. Abdominal aorta is atheromatous. There is aorto iliac bypass graft whic h shows normal contrast opacification. The lumbar vertebra have normal alignment. There is no compression fracture. Posterior elements are i ntact. The bony pelvis is intact. The hip joints are intact. Hip joint spaces are fairly normal. IMPRESSION: There is sigmoid diverticulosis without diverticulitis. There is clearing of the mildly dilated bowel loops compared to old exam.
[2021-05-26] MEDS: SODIUM CHLORIDE 0.9% 1,000 ML IV SCH ×3 (08:17→17:05)
[2021-05-26] MEDS: PANTOPRAZOLE 40 MG/10 ML VIAL IV SCH (08:17)
[2021-05-26] MEDS: MORPHINE SULFATE 4 MG/ML SYRINGE IV PRN ×2 (11:53→17:17)
[2021-05-26] MEDS ORDERED: diazePAM 2 MG TAB PO PRN (12:29)
[2021-05-26] MEDS: FAMOTIDINE 20 MG TAB PO SCH (12:50)
[2021-05-26] MEDS: levETIRAcetam 500 MG TAB PO SCH ×2 (12:50→21:39)
[2021-05-26] MEDS: ATORVASTATIN 20 MG TAB PO SCH (12:51)
[2021-05-26] MEDS: NICOTINE 21MG/24HR PATCH TRANSDERM SCH (12:51)
[2021-05-26 20:29] LABS: Glucose,Whole Blood 101 mg/dL (75-99)
--- NOTE | 2021-05-26 22:12 | P.HPIM ---
History of Present Illness H&P Date: 05/26/21 Chief Complaint: Nausea vomiting and abdominal pain Patient is an 70-year-old female with a known history of peripheral vascular disease, hyperlipidemia and seizure disorder, currently everyday smoker and occasional marijuana use presents to nausea and vomiting. Patient is also complaining of left lower quadrant abdominal pain. Patient has been having symptoms for the past 2 to 3 days and also complaining of constipation. No fever no chills. No chest pain or shortness of breath. No cough or sputum production. Denies any loss of appetite or weight loss. CT of the abdomen and pelvis showed there is sigmoid diverticulosis without diverticulitis. There is clearing of the mildly dilated bowel loops compatible exam. Patient denied any previous history of colonoscopy. Patient was recently discharged from the hospital on 05/08/2021, admitted with partial small bowel obstruction and possible 6 seizures secondary to meningioma as noted on the previous MRI. EEG on 05/24/2021 showed normal 2.5-hour outpatient digital video EEG. No clinical or electrographic seizures were recorded. No epileptiform activity was present. Review of Systems Constitutional: Patient denies any fever or chills . No generalized weakness or weight loss. Abdomen: Patient does have nausea vomiting and abdominal pain. No diarrhea. Complains of constipation. Cardiovascular: Patient denies any chest pain or short of breath no palpitations. Respiratory: patient denied any cough or sputum production. No shortness of breath Neurologic: Patient denied any numbness or tingling headache. Musculoskeletal: Patient denies any complaints of joint swelling or deformity. Skin: Negative Psychiatric: Negative Endocrine: No heat or cold intolerance. No recent weight gain. Genitourinary: No dysuria or hematuria. All other 14 point ROS negative except the above Past Medical History Past Medical History: Hyperlipidemia, Seizure Disorder Additional Past Medical History / Comment(s): Pt states she sometimes has seizure like activity but was never diagnosed. History of Any Multi-Drug Resistant Organisms: None Reported Past Surgical History: Back Surgery, Hysterectomy Past Psychological History: No Psychological Hx Reported Smoking Status: Current every day smoker Past Alcohol Use History: None Reported Past Drug Use History: Marijuana - Past Family History Mother Family Medical History: Diabetes Mellitus Medications and Allergies Home Medications Medication Instructions Recorded Confirmed Type Aspirin [Adult Low Dose Aspirin EC] 81 mg PO DAILY 05/05/21 05/26/21 History Atorvastatin [Lipitor] 20 mg PO DAILY 05/05/21 05/26/21 History Famotidine [Pepcid] 20 mg PO DAILY 30 Days #30 tablet 05/08/21 05/26/21 Rx Nicotine 21Mg/24Hr Patch [Habitrol] 1 patch TRANSDERM DAILY #20 patch 05/08/21 05/26/21 Rx Ondansetron Odt [Zofran Odt] 4 mg PO Q8HR PRN #20 tab 05/08/21 05/26/21 Rx levETIRAcetam [Keppra] 500 mg PO Q12HR 30 Days #60 tab 05/08/21 05/26/21 Rx Docusate [Colace] 100 mg PO DAILY 05/26/21 05/26/21 History diazePAM [Diazepam] 2 mg PO DAILY PRN 05/26/21 05/26/21 History Allergies Allergy/AdvReac Type Severity Reaction Status Date / Time codeine Allergy Unknown Verified 05/26/21 07:27 iron Allergy Unknown Verified 05/26/21 07:27 Penicillins AdvReac Rash/Hives Verified 05/26/21 07:27 Physical Exam Vitals: Vital Signs Temp Pulse Resp BP Pulse Ox 05/26/21 08:10 98.3 F 57 L 18 102/65 96 05/26/21 07:10 16 05/26/21 06:17 77 16 132/84 98 05/26/21 02:37 77 18 174/87 97 05/25/21 22:21 98.0 F 67 20 183/72 100 Intake and Output 05/25/21 05/26/21 05/26/21 22:59 06:59 14:59 Other: Weight 58.967 kg PHYSICAL EXAMINATION: Patient is lying in the bed comfortably, no acute distress, awake alert and oriented.. HEENT: Normocephalic. Neck is supple. Pupils reactive. Nostrils clear. Oral cavity is moist. Neck reveals no JVD, carotid bruits, or thyromegaly. CHEST EXAMINATION: Trachea is central. Symmetrical expansion. Lung blank clear to auscultation and percussion. CARDIAC: Normal S1, S2 with no gallops. No murmurs ABDOMEN: Soft. Bowel sounds normal. No organomegaly. No abdominal bruits. Extremities: reveal no edema. No clubbing or cyanosis Neurologically awake, alert, oriented x3 with well-coordinated movements. No focal deficits noted Skin: No rash or skin lesions. Psychiatric: Coperative. Nonsuicidal Musculoskeletal: No joint swelling or deformity. Normal range of motion. Results CBC & Chem 7: 05/25/21 23:20 05/25/21 23:20 Labs: Abnormal Lab Results - Last 24 Hours (Table) 05/25/21 05/25/21 Range/Units 23:20 23:20 Chloride 109 H (98-107) mmol/L Glucose 112 H (74-99) mg/dL Urine Blood Trace H (Negative) Ur Leukocyte Esterase Trace H (Negative) Urine Bacteria Few H (None) /hpf Thrombosis Risk Factor Assmnt - DVT/VTE Prophylaxis DVT/VTE Prophylaxis: Pharmacologic Prophylaxis ordered Assessment and Plan Assessment: Intractable nausea and vomiting and abdominal pain with recent history of partial small bowel obstruction Hyperlipidemia Peripheral vascular disease status post aorto iliac femoral bypass graft Ongoing evaluation Occasional marijuana use Recent admission with possible seizure sent meningioma as per MRI. Started on antiepileptic medications recently. GI and DVT prophylaxis Heparin subcu Plan: Patient will be continued on symptomatic management for nausea and vomiting. Continue with IV hydration and continue with PPI and follow-up closely. Due to similar recent admission with nausea vomiting and abdominal pain, GI was consulted for evaluation. Continue to follow closely. Time with Patient: Greater than 30
[2021-05-26] MEDS: HEPARIN SODIUM,PORCINE/PF 5,000 UNIT/0.5 ML SYRINGE SQ SCH (22:52)
[2021-05-27] MEDS: SODIUM CHLORIDE 0.9% 1,000 ML IV SCH ×2 (08:23→15:56)
[2021-05-27] MEDS: ASPIRIN 81 MG PO SCH (08:24)
[2021-05-27] MEDS: ATORVASTATIN 20 MG TAB PO SCH (08:24)
[2021-05-27] MEDS: NICOTINE 21MG/24HR PATCH TRANSDERM SCH (08:24)
[2021-05-27] MEDS: DOCUSATE 100 MG CAP PO SCH (08:24)
[2021-05-27] MEDS: PANTOPRAZOLE 40 MG/10 ML VIAL IV SCH (08:25)
[2021-05-27] MEDS: FAMOTIDINE 20 MG TAB PO SCH (08:25)
[2021-05-27] MEDS: levETIRAcetam 500 MG TAB PO SCH ×2 (08:25→20:42)
[2021-05-27] MEDS: HEPARIN SODIUM,PORCINE/PF 5,000 UNIT/0.5 ML SYRINGE SQ SCH ×3 (08:25→20:42)
[2021-05-27] MEDS ORDERED: MAGNESIUM CITRATE 296 ML BOTTLE PO ONE (09:26)
[2021-05-27 10:45] LABS: Basophils # (A) 0.03 X 10*3/uL (0.00-0.10); Basophils % (A) 0.5 %; Eosinophils # (A) 0.17 X 10*3/uL (0.04-0.35); Eosinophils % (A) 2.7 %; HCT 41.9 % (37.2-46.3); HGB 13.2 g/dL (12.0-15.0); Lymphocytes % (A) 33.7 %; MCH 27.3 pg (27.0-32.0); MCHC 31.5 g/dL (32.0-37.0); MCV 86.7 fL (80.0-97.0); Mean Platelet Volume 9.9 fL (9.5-12.2); Monocytes # (A) 0.55 X 10*3/uL (0.20-1.00); Monocytes % (A) 8.8 %; Neutrophils # (A) 3.38 X 10*3/uL (1.80-7.70); Neutrophils % (A) 54.1 %; Platelet Count 321 X 10*3/uL (140-440); RBC 4.83 X 10*6/uL (4.10-5.20); RDW 12.2 % (11.5-14.5); WBC 6.24 X 10*3/uL (4.50-10.00)
[2021-05-27 12:00] LABS: African American GFR (CKD) 87.8 (60.0-200.0); Albumin 3.8 g/dL (3.80-4.90); Anion Gap 7.4 mmol/L (4.00-12.00); BUN/Creat Ratio 8.75 Ratio (12.00-20.00); Calcium 8.5 mg/dL (8.7-10.3); Carbon Dioxide 24.6 mmol/L (21.6-31.8); Globulin 1.9 g/dL (1.6-3.3); Non-African American GFR(CKD) 75.8 (60.0-200.0); Phosphorus 3.8 mg/dL (2.4-5.1); Potassium 4.1 mmol/L (3.5-5.5); Total Protein 5.7 g/dL (6.2-8.2)
[2021-05-27] MEDS: LACTATED RINGERS 1,000 ML IV SCH ×2 (14:54→14:57)
[2021-05-27] MEDS ORDERED: PEG 3350-NA SULF,BICARB,CL/KCL 4,000 ML BOTTLE PO ONE (16:00)
--- NOTE | 2021-05-27 17:58 | CONS ---
CONSULTATION DATE OF SERVICE: 05/27/2021 REASON FOR CONSULTATION: Lower abdominal pain, nausea, vomiting, and constipation. HISTORY OF PRESENT ILLNESS: The patient is a 70-year-old pleasant white female with history of hypertension, seizure disorder, peripheral vascular disease, admitted to the hospital because of abdominal pain, mostly in the lower abdominal area. The pain is in the left lower quadrant area associated with severe constipation. She had no bowel movements for the last 4-5 days' duration. Normally, she has regular bowel movements, but for the last 2 months she has been noticing altered bowel movements. She also has intermittent episodes of nausea, vomiting. She came to the emergency room and she had a CT of the abdomen and pelvis done that showed sigmoid diverticulosis without any diverticulitis. The patient had a previous hospitalization 2 weeks ago for the same complaints. CT abdomen at that time showed evidence of partial small bowel obstruction that subsequently resolved. She denies any rectal bleeding or melena. No prior history of peptic ulcer disease. Never had a colonoscopy in the past. The patient also has history of seizure disorder and apparently she had a seizure episode about 4 days ago. Neurology has been following the patient closely. PAST MEDICAL HISTORY: Significant for hypertension, hyperlipidemia, seizure disorder. MEDICATIONS: Medications at home include aspirin, Lipitor, Pepcid, Habitrol, Zofran, Keppra, Colace, diazepam. ALLERGIES: IRON and PENICILLIN. SOCIAL HISTORY: Chronic smoker. No alcohol use. FAMILY HISTORY: Mother has diabetes mellitus. PAST SURGICAL HISTORY: Back surgery, hysterectomy. REVIEW OF SYSTEMS: CARDIOPULMONARY: No chest pain or shortness of breath. : No dysuria, no hematuria. MUSCULOSKELETAL: Unremarkable. SKIN: Unremarkable. ENDOCRINE: Unremarkable. PSYCHIATRIC: Unremarkable. ENT/VISION: Unremarkable. CONSTITUTIONAL: No recent weight loss. No fever, chills, night sweats. PHYSICAL EXAMINATION: She appears comfortable. No apparent distress. VITAL SIGNS: Stable. Blood pressure is 137/73, pulse rate 62, temperature 97.8. HEENT examination unremarkable. Conjunctivae pink, sclerae anicteric. Oral cavity, no lesions. NECK no JVD. CHEST: Clear to auscultation. HEART: Regular rate and rhythm. ABDOMEN: Soft, there was tenderness in the left lower quadrant area. Some tenderness in the suprapubic area. Rest of the abdomen was benign. Bowel sounds are positive, no organomegaly. EXTREMITIES: No pedal edema. NEUROLOGIC: Alert and oriented x3. No focal deficits. LABS: WBC 7.5, hemoglobin 14.7, platelets normal. Basic metabolic panel is within normal limits. AST, ALT, T bilirubin, and alkaline phosphatase are within normal limits. IMPRESSION: 1. Severe lower abdominal pain with constipation for the last 4-[address] scan of the abdomen showed sigmoid diverticulosis with no evidence of diverticulitis. No prior history of colonoscopy in the past. 2. Intermittent nausea vomiting, probably related to abdominal pain, which now has resolved. 3. History of seizure disorder, presently on Keppra. 4. History of hypertension and hyperlipidemia. RECOMMENDATIONS: 1. Start her on osmotic laxatives with magnesium citrate and MiraLAX. 2. I had a lengthy discussion regarding further workup at this time. Recommend a colonoscopy, as she never had one done before and she is agreeable to it. She will be scheduled for a colonoscopy tomorrow. We will follow with you closely. Thank you for this consultation. JUANITO / ZAHIRAN: [id number] /
[2021-05-27] MEDS ORDERED: SODIUM CHLORIDE 0.9% 1,000 ML BAG ONE (23:59)
[2021-05-27] MEDS ORDERED: MORPHINE SULFATE 4 MG/ML SYRINGE ONE (23:59)
[2021-05-28] MEDS: SODIUM CHLORIDE 0.9% 1,000 ML IV SCH ×2 (05:23→20:06)
[2021-05-28] MEDS: HEPARIN SODIUM,PORCINE/PF 5,000 UNIT/0.5 ML SYRINGE SQ SCH ×3 (08:14→20:07)
[2021-05-28] MEDS: DOCUSATE 100 MG CAP PO SCH (08:14)
[2021-05-28] MEDS: PANTOPRAZOLE 40 MG TABLET PO SCH (08:14)
[2021-05-28] MEDS: NICOTINE 21MG/24HR PATCH TRANSDERM SCH (08:15)
[2021-05-28] MEDS: polyethylene glycoL 3350 17 GM POWD.PACK PO SCH (08:15)
[2021-05-28] MEDS: levETIRAcetam 500 MG TAB PO SCH ×2 (08:15→20:07)
[2021-05-28] MEDS: ATORVASTATIN 20 MG TAB PO SCH (08:15)
[2021-05-28] MEDS: FAMOTIDINE 20 MG TAB PO SCH (08:17)
[2021-05-28] MEDS: ASPIRIN 81 MG PO SCH (08:17)
[2021-05-28] MEDS: MORPHINE SULFATE 4 MG/ML SYRINGE IV PRN (08:24)
--- NOTE | 2021-05-28 09:29 | P.PN ---
Subjective Progress Note Date: 05/27/21 Patient is an 70-year-old female with a known history of peripheral vascular disease, hyperlipidemia and seizure disorder, currently everyday smoker and occasional marijuana use presents to nausea and vomiting. Patient is also complaining of left lower quadrant abdominal pain. Patient has been having sy mptoms for the past 2 to 3 days and also complaining of constipation. No fever no chills. No chest pain or shortness of breath. No cough or sputum production. Denies any loss of appetite or weight loss. CT of the abdomen and pelvis showed there is sigmoid diverticulosis without diverticulitis. There is clearing of the mildly dilated bowel loops compatible exam. Patient denied any previous history of colonoscopy. Patient was recently discharged from the hospital on 05/08/2021, admitted with pa rtial small bowel obstruction and possible 6 seizures secondary to meningioma as noted on the previous MRI. EEG on 05/24/2021 showed normal 2.5-hour outpatient digital video EEG. No clinical or electrographic seizures were recorded. No epileptiform activity was present. 05/27/2021 Patient is seen and evaluated in follow-up continues to have abdominal discomfort and very minimal small bowel movements but continues to feel constipated and was given magnesium citrate with GI following closely. Patient is being scheduled for colonoscopy and will start the bowel prep. Patient was originally discussed with about possible outpatient colonoscopy although patient lives alone and is concerned about doing a bowel prep at home as she feels this may exacerbate a possible seizure. Patient continues on seizure medication that was recently started at previous admission and did not follow-up outpatient with neurology as of yet. White blood count is 6.24 with a hemoglobin of 13.2, sodium is 142 with a potassium of 4.1 and current creatinine is 0.8. Patient is afebrile. Patient was on clear liquids and tolerating with no reports of nausea or vomiting but continued with abdominal discomfort. Review of systems: Constitutional: No reports of fatigue, fever, or chills Cardiovascular: No reports of chest pain or palpitations Respiratory: No reports of shortness of breath or cough GI: No reports of nausea, vomiting, reports minimal small amounts of stool with feelings of abdominal discomfort and constipation : No reports of dysuria or retention Neurovascular: No reports of weakness or numbness All medications have been reviewed Objective - Vital Signs Vital signs: Vital Signs Temp 97.8 F 05/27/21 07:00 Pulse 62 05/27/21 07:00 Resp 18 05/27/21 07:00 BP 137/73 05/27/21 07:00 Pulse Ox 97 05/27/21 07:00 Intake & Output 05/26/21 05/27/21 05/27/21 18:59 06:59 18:59 Intake Total 200 540 Balance 200 540 Weight 58.967 kg Intake: Oral 200 540 Other: Voiding Method Toilet Toilet # Voids 1 1 - Exam Patient is lying in the bed comfortably, no acute distress, awake alert and oriented.. HEENT: Normocephalic. Neck is supple. Pupils reactive. Nostrils clear. Oral cavity is moist. Neck reveals no JVD, carotid bruits, or thyromegaly. CHEST EXAMINATION: Trachea is central. Symmetrical expansion. Lung blank clear to auscultation and percussion. CARDIAC: Normal S1, S2 with no gallops. No murmurs ABDOMEN: Soft. Abdominal tenderness in the lower quadrants on palpation. Bowel sounds normal. No organomegaly. No abdominal bruits. Extremities: reveal no edema. No clubbing or cyanosis Neurologically awake, alert, oriented x3 with well-coordinated movements. No focal deficits noted Skin: No rash or skin lesions. Psychiatric: Cooperative. Non-suicidal Musculoskeletal: No joint swelling or deformity. Normal range of motion. - Labs CBC & Chem 7: 05/27/21 05:00 05/27/21 05:00 Labs: Abnormal Lab Results - Last 24 Hours (Table) 05/26/21 05/27/21 05/27/21 Range/Units 20:27 05:00 05:00 MCHC 31.5 L (32.0-37.0) g/dL Chloride 110 H (96-109) mmol/L BUN 7.0 L (9.0-27.0) mg/dL BUN/Creatinine Ratio 8.75 L (12.00-20.00) Ratio POC Glucose (mg/dL) 101 H (75-99) mg/dL Calcium 8.5 L (8.7-10.3) mg/dL Total Protein 5.7 L (6.2-8.2) g/dL Assessment and Plan Assessment: Intractable nausea and vomiting and abdominal pain with recent history of par tial small bowel obstruction Hyperlipidemia Peripheral vascular disease status post aorto iliac femoral bypass graft Ongoing evaluation Occasional marijuana use Recent admission with possible seizure secondary to meningioma as per MRI. Started on antiepileptic medications recently. GI and DVT prophylaxis Heparin subcu Full code Plan: Patient will be continued on symptomatic management for nausea and vomiting. Continue with IV hydration and continue with PPI and follow-up closely. Patient was having small amounts of stool noted but continues with abdominal discomfort and continued on clear liquids and tolerating with no reports of nausea vomiting. Patient continues to feel constipated and was Given magnesium citrate with no relief and GI is following and plans are to start bowel prep for colonoscopy in the morning. Labs today within normal limits. Will continue gentle IV hydration and patient will be nothing by mouth at midnight. Will await endoscopic report and continue to monitor closely. Possible discharge in 24 hours.
[2021-05-28] MEDS ORDERED: GLYCOPYRROLATE 0.2 MG/ML 2 ML VIAL ONE (13:49)
[2021-05-28] MEDS ORDERED: PROPOFOL 10 MG/ML 20 ML VIAL IV ONE (13:49)
[2021-05-28] MEDS ORDERED: LIDOCAINE 1% INJ 10MG/ML (20 ML MDV) ONE (13:49)
[2021-05-28] MEDS ORDERED: IV FLUID CONTINUATION 150 ML IV ONE (13:50)
[2021-05-28] MEDS: LACTATED RINGERS 1,000 ML IV SCH ×2 (13:56)
[2021-05-28] MEDS ORDERED: SODIUM CHLORIDE 0.9% 500 ML 500 ML IV ONE ×2 (14:09)
--- NOTE | 2021-05-28 14:24 | P.PCN ---
Date of Procedure: 05/28/21 Procedure(s) Performed: BRIEF HISTORY: Patient is a 70-year-old pleasant white female admitted hospital with severe lower abdominal pain and constipation for the last 6 days duration. He scheduled for colonoscopy to evaluate further. PROCEDURE PERFORMED: Colonoscopy with snare polypectomy . PREOPERATIVE DIAGNOSIS: lower abdominal pain and constipation IV sedation per Anesthesia. PROCEDURE: After informed consent was obtained, the patient, was brought into the endoscopy unit. IV sedation was administered by Anesthesia under continuous monitoring. Digital rectal examination was normal. Initially the Olympus CF-160 flexible video colonoscope was then inserted in the rectum, gradually advanced i nto the sigmoid colon and further advancement was not possible because of acute angulation this area. At this time the pediatric colonoscopy was then introduced into the rectum and with moderate to severe difficulty and was gently able to pass the scope into the cecum. Careful examination was performed as the scope was gradually being withdrawn. Ileocecal valve and the appendiceal orifice were visualized and appeared normal. Prep was fair. Mucosa of the cecum, be normal. In the ascending colon there was a 1 cm flat polyp removed by snare polypectomy. In the transverse colon colon there was another 1 cm polyp removed by snare polypectomy. Rest of the ascending colon, transverse colon, descending colon, sigmoid colon, and rectum appeared normal. at her sigmoid diverticulosis seen. Retroflexion was performed in the rectum and no lesions were seen. The patient tolerated the procedure well. IMPRESSION: 1 cm ascending colon polyp status post polypectomy 1 cm transverse colon polyp status post polypectomy Scattered sigmoid diverticulosis RECOMMENDATIONS: Findings of this examination were discussed with the patient. She will be started on MiraLAX 1 scoop daily. She will follow with the biopsy results. If the biopsy shows an adenoma she can have a repeat colonoscopy in 3- 5 years
[2021-05-29 02:26] VITALS: PULSE 76; RESP 18
[2021-05-29] MEDS: MORPHINE SULFATE 4 MG/ML SYRINGE IV PRN (02:27)
[2021-05-29 07:57] VITALS: BP 111/64; TEMP 97.7
[2021-05-29] MEDS: NICOTINE 21MG/24HR PATCH TRANSDERM SCH (08:18)
[2021-05-29] MEDS: HEPARIN SODIUM,PORCINE/PF 5,000 UNIT/0.5 ML SYRINGE SQ SCH (08:18)
[2021-05-29] MEDS: ATORVASTATIN 20 MG TAB PO SCH (08:18)
[2021-05-29] MEDS: polyethylene glycoL 3350 17 GM POWD.PACK PO SCH (08:18)
[2021-05-29] MEDS: ASPIRIN 81 MG PO SCH (08:18)
[2021-05-29] MEDS: PANTOPRAZOLE 40 MG TABLET PO SCH (08:18)
[2021-05-29] MEDS: SODIUM CHLORIDE 0.9% 1,000 ML IV SCH (08:19)
[2021-05-29] MEDS: levETIRAcetam 500 MG TAB PO SCH (08:19)
[2021-05-29] MEDS: FAMOTIDINE 20 MG TAB PO SCH (08:19)
[2021-05-29] MEDS: DOCUSATE 100 MG CAP PO SCH (08:19)
--- NOTE | 2021-05-29 09:39 | P.PN ---
Subjective Progress Note Date: 05/29/21 Patient is an 70-year-old female with a known history of peripheral vascular disease, hyperlipidemia and seizure disorder, currently everyday smoker and occasional marijuana use presents to nausea and vomiting. Patient is also complaining of left lower quadrant abdominal pain. Patient has been having sy mptoms for the past 2 to 3 days and also complaining of constipation. No fever no chills. No chest pain or shortness of breath. No cough or sputum production. Denies any loss of appetite or weight loss. CT of the abdomen and pelvis showed there is sigmoid diverticulosis without diverticulitis. There is clearing of the mildly dilated bowel loops compatible exam. Patient denied any previous history of colonoscopy. Patient was recently discharged from the hospital on 05/08/2021, admitted with pa rtial small bowel obstruction and possible 6 seizures secondary to meningioma as noted on the previous MRI. EEG on 05/24/2021 showed normal 2.5-hour outpatient digital video EEG. No clinical or electrographic seizures were recorded. No epileptiform activity was present. 05/27/2021 Patient is seen and evaluated in follow-up continues to have abdominal discomfort and very minimal small bowel movements but continues to feel constipated and was given magnesium citrate with GI following closely. Patient is being scheduled for colonoscopy and will start the bowel prep. Patient was originally discussed with about possible outpatient colonoscopy although patient lives alone and is concerned about doing a bowel prep at home as she feels this may exacerbate a possible seizure. Patient continues on seizure medication that was recently started at previous admission and did not follow-up outpatient with neurology as of yet. White blood count is 6.24 with a hemoglobin of 13.2, sodium is 142 with a potassium of 4.1 and current creatinine is 0.8. Patient is afebrile. Patient was on clear liquids and tolerating with no reports of nausea or vomiting but continued with abdominal discomfort. 05/28/2021 Patient is seen in follow-up underwent colonoscopy with GI showing a 1 cm ascending colon polyp along with a 1 cm transverse colon polyp and scattered sigmoid diverticulosis with biopsies obtained and patient will need follow-up outpatient with GI. Patient was also started on MiraLAX and will continue daily. Patient was originally supposed to be discharged after colonoscopy but started feeling extremely nauseated and Zofran ineffective and was also started on Reglan. Patient also stated that she felt she was going to have a seizure and not comfortable going home as she does live alone. Discharge was removed and patient will be observed and monitored closely overnight with possible discharge in the morning. Review of systems: Constitutional: No reports of fatigue, fever, or chills Cardiovascular: No reports of chest pain or palpitations Respiratory: No reports of shortness of breath or cough GI: reports of nausea and continued abdominal discomfort : No reports of dysuria or retention Neurovascular: No reports of weakness or numbness All medications have been reviewed Objective - Vital Signs Vital signs: Vital Signs Temp 97.7 F 05/29/21 07:00 Pulse 76 05/29/21 07:46 Resp 18 05/29/21 07:46 BP 111/64 05/29/21 07:00 Pulse Ox 96 05/29/21 07:00 Intake & Output 05/28/21 05/29/21 05/29/21 18:59 06:59 18:59 Intake Total 530 Balance 530 Intake: IV 350 Oral 180 Other: Voiding Method Toilet Toilet Toilet # Voids 4 2 # Bowel Movements 2 - Exam Patient is lying in the bed extremely anxious and nauseated,, awake alert and oriented.. HEENT: Normocephalic. Neck is supple. Pupils reactive. Nostrils clear. Oral cavity is moist. Neck reveals no JVD, carotid bruits, or thyromegaly. CHEST EXAMINATION: Trachea is central. Symmetrical expansion. Lung blank clear to auscultation and percussion. CARDIAC: Normal S1, S2 with no gallops. No murmurs ABDOMEN: Soft. Abdominal tenderness in the lower quadrants on palpation. Bowel sounds normal. No organomegaly. No abdominal bruits. Extremities: reveal no edema. No clubbing or cyanosis Neurologically awake, alert, oriented x3 with well-coordinated movements. No focal deficits noted Skin: No rash or skin lesions. Psychiatric: Cooperative. Non-suicidal Musculoskeletal: No joint swelling or deformity. Normal range of motion. - Labs CBC & Chem 7: 05/27/21 05:00 05/27/21 05:00 Assessment and Plan Assessment: Intractable nausea and vomiting and abdominal pain with recent history of partial small bowel obstruction Status post colonoscopy showing a 1 cm ascending colon polyp along with a 1 cm transverse colon polyp with biopsies obtained Hyperlipidemia Peripheral vascular disease status post aorto iliac femoral bypass graft Ongoing evaluation Occasional marijuana use Recent admission with possible seizures secondary to meningioma as per MRI. Started on antiepileptic medications recently. GI and DVT prophylaxis Heparin subcu Full code Plan: Patient underwent colonoscopy as mentioned above and was scheduled to be discharged although after returning from colonoscopy became extremely nauseated with increasing abdominal discomfort and having feelings of possibly having a seizure. Seizure precautions continued and Zofran wasn't effective and will add Reglan as needed and decrease patient's diet clear liquids or nothing by mouth if pain persists or worsens. Was discussed with nursing staff and the patient. Will hold discharge and observe closely with possible discharge in the morning.
--- NOTE | 2021-05-31 01:37 | P.DS ---
Providers Date of admission: 05/28/21 09:13 Expected date of discharge: 05/29/21 Attending physician: Chapincito Meredith Consults: 05/26/21 14:18 Consult Physician Routine Consulting Provider: Trista Villalobos Consult Reason/Comments: N/V Do you want consulting provider notified?: Yes Primary care physician: Celeste Senior Hospital Course: Final Diagnosis Intractable nausea and vomiting and abdominal pain with recent history of partial small bowel obstruction Status post colonoscopy showing a 1 cm ascending colon polyp along with a 1 cm transverse colon polyp with biopsies obtained Hyperlipidemia Peripheral vascular disease status post aorto iliac femoral bypass graft Ongoing evaluation Occasional marijuana use Recent admission with possible seizures secondary to meningioma as per MRI. Started on antiepileptic medications recently. GI and DVT prophylaxis Heparin subcu Full code Discharge disposition Patient is being discharged in a stable condition with guarded prognosis to home. Patient will follow-up with Dr. Alonso in the outpatient setting upon discharge. Patient is to also follow-up with neurology and GI in the outpatient setting. Patient will continue on miralax daily. Total time taken is greater than 35 minutes. Hospital course Patient is an 70-year-old female with a known history of peripheral vascular disease, hyperlipidemia and seizure disorder, currently everyday smoker and occasional marijuana use presents to nausea and vomiting. Patient is also complaining of left lower quadrant abdominal pain. Patient has been having symptoms for the past 2 to 3 days and also complaining of constipation. No fever no chills. No chest pain or shortness of breath. No cough or sputum production. Denies any loss of appetite or weight loss. CT of the abdomen and pelvis showed there is sigmoid diverticulosis without diverticulitis. There is clearing of the mildly dilated bowel loops compatible exam. Patient denied any previous history of colonoscopy. Patient was recently discharged from the hospital on 05/08/2021, admitted with partial small bowel obstruction and possible 6 seizures secondary to meningioma as noted on the previous MRI. EEG on 05/24/2021 showed normal 2.5-hour outpatient digital video EEG. No clinical or electrographic seizures were recorded. No epileptiform activity was present. 05/27/2021 Patient is seen and evaluated in follow-up continues to have abdominal discomfort and very minimal small bowel movements but continues to feel constipated and was given magnesium citrate with GI following closely. Patient is being scheduled for colonoscopy and will start the bowel prep. Patient was originally discussed with about possible outpatient colonoscopy although patient lives alone and is concerned about doing a bowel prep at home as she feels this may exacerbate a possible seizure. Patient continues on seizure medication that was recently started at previous admission and did not follow-up outpatient with neurology as of yet. White blood count is 6.24 with a hemoglobin of 13.2, sodium is 142 with a potassium of 4.1 and current creatinine is 0.8. Patient is afebrile. Patient was on clear liquids and tolerating with no reports of nausea or vomiting but continued with abdominal discomfort. 05/28/2021 Patient is seen in follow-up underwent colonoscopy with GI showing a 1 cm ascending colon polyp along with a 1 cm transverse colon polyp and scattered sigmoid diverticulosis with biopsies obtained and patient will need follow-up outpatient with GI. Patient was also started on MiraLAX and will continue d aily. Patient was originally supposed to be discharged after colonoscopy but started feeling extremely nauseated and Zofran ineffective and was also started on Reglan. Patient also stated that she felt she was going to have a seizure and not comfortable going home as she does live alone. Discharge was removed and patient will be observed and monitored closely overnight with possible discharge in the morning. 05/29/2021 Patient seen and evaluated this morning feeling much better and tolerated clear liquids and asking for advance in diet. Once tolerating patient will be discharged home. Patient to continue with miralax daily not as PRN. Patient to follow up with GI for biopsy results and neurology outpatient. Currently no reports of chest pain, shortness of breath, or palpitations. Patient is afebrile. No reports of nausea or vomiting and patient is tolerating diet. Patient will be discharged home today. On exam vital signs are stable. Cardio S1, S2 are muffled. Respiratory system shows diminished breath sounds at the bases with no wheezing or rhonchi noted. Abdomen is soft and nontender. Nervous system shows no focal deficits. Please refer to medication reconciliation sheet for a list of medications. Patient Condition at Discharge: Good Plan - Discharge Summary Discharge Rx Participant: Yes New Discharge Prescriptions: New Pantoprazole [Protonix] 40 mg PO AGUSTIN-BRKFST #30 tablet. polyethylene glycoL 3350 [Miralax] 17 gm PO DAILY 30 Days #30 powd.pack Continue Famotidine [Pepcid] 20 mg PO DAILY 30 Days #30 tablet Ondansetron Odt [Zofran ODT] 4 mg PO Q8HR PRN #20 tab PRN Reason: Nausea Docusate [Colace] 100 mg PO DAILY diazePAM [Diazepam] 2 mg PO DAILY PRN PRN Reason: Insomnia Atorvastatin [Lipitor] 20 mg PO DAILY Aspirin [Adult Low Dose Aspirin EC] 81 mg PO DAILY Nicotine 21Mg/24Hr Patch [Habitrol] 1 patch TRANSDERM DAILY #20 patch levETIRAcetam [Keppra] 500 mg PO Q12HR 30 Days #60 tab Discharge Medication List Aspirin [Adult Low Dose Aspirin EC] 81 mg PO DAILY 05/05/21 [History] Atorvastatin [Lipitor] 20 mg PO DAILY 05/05/21 [History] Famotidine [Pepcid] 20 mg PO DAILY 30 Days #30 tablet 05/08/21 [Rx] Nicotine 21Mg/24Hr Patch [Habitrol] 1 patch TRANSDERM DAILY #20 patch 05/08/21 [Rx] Ondansetron Odt [Zofran ODT] 4 mg PO Q8HR PRN #20 tab 05/08/21 [Rx] levETIRAcetam [Keppra] 500 mg PO Q12HR 30 Days #60 tab 05/08/21 [Rx] Docusate [Colace] 100 mg PO DAILY 05/26/21 [History] diazePAM [Diazepam] 2 mg PO DAILY PRN 05/26/21 [History] Pantoprazole [Protonix] 40 mg PO AC-BRKFST #30 tablet.dr 05/28/21 [Rx] polyethylene glycoL 3350 [Miralax] 17 gm PO DAILY 30 Days #30 powd.pack 05/28/21 [Rx] Follow up Appointment(s)/Referral(s): Nadeen Alonso MD [Primary Care Provider] - 06/02/21 1:10 pm Trista Villalobos MD [STAFF PHYSICIAN] - As Needed (Call for biopsy results) Patient Instructions/Handouts: *Sur[facility] - (Anesthesia) Endoscopy Discharge Instructions, Diverticulitis (GEN), Bowel Obstruction (GEN) Activity/Diet/Wound Care/Special Instructions: Activity Limited until follow-up Follow-up with primary care provider upon discharge Follow-up with GI for biopsy resultS Continue with MiraLAX daily Follow-up with neurology outpatient as instructed previously Continue with medications as prescribed Continue low fiber diet and slowly advance as tolerated Discharge Disposition: HOME SELF-CARE
== END 2021-05-29 10:35 | disposition home or self-care (01) | DRG 392 ==
LOC: EC 22:18 → 6NMEDSUR 05-26 01:06 → OBSVTOIN 05-28 09:13
PROVIDERS: ADMIT Hospitalist; ATTEND Hospitalist
PROC: 0DBL8ZX Excision of Transverse Colon, Via Natural or Artificial Opening Endoscopic, Diagnostic (ICD-10-PCS; 2021-05-28)
PROC: 0DBK8ZX Excision of Ascending Colon, Via Natural or Artificial Opening Endoscopic, Diagnostic (ICD-10-PCS; principal; 2021-05-28 13:40)
DX: K57.30 Diverticulosis of large intestine without perforation or abscess without bleeding (principal); K63.5 Polyp of colon; G40.909 Epilepsy, unspecified, not intractable, without status epilepticus; K59.00 Constipation, unspecified; I10 Essential (primary) hypertension; E78.5 Hyperlipidemia, unspecified; I73.9 Peripheral vascular disease, unspecified; F12.90 Cannabis use, unspecified, uncomplicated; F17.210 Nicotine dependence, cigarettes, uncomplicated; Z87.19 Personal history of other diseases of the digestive system; Z79.82 Long term (current) use of aspirin; Z95.820 Peripheral vascular angioplasty status with implants and grafts; Z90.710 Acquired absence of both cervix and uterus; Z79.899 Other long term (current) drug therapy; Z88.5 Allergy status to narcotic agent; Z88.0 Allergy status to penicillin; Z88.8 Allergy status to other drugs, medicaments and biological substances
CPT/HCPCS: 36415; 45385; 74177; 80053; 81001; 82150; 82550; 83605; 83690; 83735; 84100; 84484; 85025; 85610; 85730; 88305; 96361; 96374; 96375; 99284

== ENCOUNTER → 2024-11-01 | Outpatient (CLI) | payer MEDICARE, OTHER ==
[2024-11-01 15:55] LABS: HCT 44.1 % (37.2-46.3); HGB 14.2 g/dL (12.0-15.0); MCH 28.3 pg (27.0-32.0); MCHC 32.2 g/dL (32.0-37.0); Mean Platelet Volume 9.8 FL (9.5-12.2); NRBC Per 100 WBC 0 X 10*3/uL (0.00-0.01); Platelet Count 374 X 10*3/uL (140-440); RBC 5.01 X 10*6/uL (4.10-5.20); RDW 12.2 % (11.5-14.5); WBC 7.43 X 10*3/uL (4.50-10.00)
[2024-11-01 16:03] LABS: BUN/Creat Ratio 8.22 Ratio (12.00-20.00); Blood Urea Nitrogen 7.4 mg/dL (9.0-27.0); Calcium 9.5 mg/dL (8.7-10.3); Carbon Dioxide 25.1 mmol/L (21.6-31.8); Chloride 103 mmol/L (96-109); Glucose 102 mg/dL (70-110); Potassium 4.2 mmol/L (3.5-5.5); Sodium 140 mmol/L (135-145)
== END | disposition home or self-care (01) ==
LOC: LABWHC1 09:56
PROVIDERS: ATTEND Nurse Practitioner Family
DX: R63.4 Abnormal weight loss (principal)
CPT/HCPCS: 36415; 80048; 85027

== ENCOUNTER → 2025-05-07 | Outpatient (CLI) | payer MEDICARE, OTHER ==
--- NOTE | 2025-05-07 08:24 | MM ---
Reason for Exam: Screening (asymptomatic). Last mammogram was performed 8 year(s) and 7 month(s) ago. Patient History: Menarche at age 14. First Full-Term at age 19. Left ovary removed at age 26. Right ovary removed at age 26. Hysterectomy at age 26. Postmenopausal. Estrogen for 6 months. Risk Values: Haley 5 year model risk: 1.3%. NCI Lifetime model risk: 3.3%. Prior Study Comparison: 12/17/2011 Bilateral Screening Mammogram, [facility]. 10/29/2016 Bilateral Screening Mammogram, [facility]. Tissue Density: There are scattered areas of fibroglandular density. Findings: Analyzed By CAD. There are a few small scattered benign-appearing round calcifications bilaterally. There is no suspicious group of microcalcifications or new suspicious mass in either breast. Overall Assessment: Benign, BI-RAD 2 Management: Screening Mammogram of both breasts in 1 year. . Patient should continue monthly self-breast exams. A clinical breast exam by your physician is recommended on an annual basis. This exam should not preclude additional follow-up of suspicious palpable abnormalities. Note on Haley scores and lifetime risk: 1. A Haley score greater than 3% is considered moderate risk. If this is the case, consider specialist referral to assess eligibility for a risk reducing agent. 2. If overall lifetime risk for the development of breast cancer is 20% or higher, the patient may qualify for future screening with alternating mammogram and breast MRI. [facility], , 05/07/2025 8:20 AM. Electronically signed and approved by: Corey Calix M.D.
== END | disposition home or self-care (01) ==
LOC: RADMAMWWP 07:35
PROVIDERS: ATTEND Psychiatry & Neurology Neurology
DX: Z12.31 Encounter for screening mammogram for malignant neoplasm of breast (principal); R92.323 Mammographic fibroglandular density, bilateral breasts; Z78.0 Asymptomatic menopausal state
CPT/HCPCS: 77063; 77067